=== PATIENT | male | born 1950 | race African-American/Black ===

== ENCOUNTER 2017-11-10 14:09 | Inpatient (IN) | payer MEDICARE ==
[2017-11-10] VITALS (20 sets, daily range): BP systolic 115–179; BP diastolic 67–104
[~2017-11-10] VITALS: Ht 195.6 cm; Wt 117.3 kg
[2017-11-10] MEDS ORDERED: ALTEPLASE IV SCH (14:30)
--- NOTE | 2017-11-10 14:33 | RAD ---
CT head without IV contrast CLINICAL HISTORY: CODE STROKE, RT SD WEAKNESS, SLURRED SPEECH COMPARISON: None. TECHNIQUE: Routine CT of the head without contrast. Soft tissues and bone windows were reviewed. PQRS compliance Statement One or more of the following individualized dose reduction techniques were utilized for this study: 1. Automated exposure control 2. Adjustment of the mA and/or kV according to patient size 3. Use of iterative reconstruction technique FINDINGS: There is no evidence of hemorrhage, mass or extra-axial fluid collection. Singleton-white differentiation is maintained with no evidence of edema. There is no mass effect or shift of the intracranial structures. The ventricles, basilar cisterns and cortical sulci are normal in size and configuration for the patients stated age. The cerebellum and brainstem are unremarkable. The calvarium demonstrates no evidence of fracture or focal lesion. There is normal aeration of the visualized paranasal sinuses and mastoid air cells. The visualized portions of the orbits are normal. IMPRESSION: 1. No evidence for acute intracranial hemorrhage. ::: This critical result of no evidence of acute intracranial hemorrhage was verbally reported by Abisai Maria MD to Dr. Amado on 11/10/2017 2:26 PM, 1 minute after the diagnosis was made. ::: Electronically signed by: Abisai Maria MD (11/10/2017 2:29 PM) [facility]
[2017-11-10 14:34] LABS: HEMATOCRIT 40.3 % (39.0-53.0); HEMOGLOBIN 13.3 g/dL (13.0-17.5); RED BLOOD COUNT 4.89 x10^6/uL (4.30-5.70); RED CELL DISTRIBUTION WIDTH 14.6 % (11.5-14.5); WHITE BLOOD COUNT 5.1 x10^3/uL (4.0-11.0)
--- NOTE | 2017-11-10 14:35 | EKG ---
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
--- NOTE | 2017-11-10 14:36 | PHYS DOC ---
Past Medical History Past Medical History: No Pertinent History Smoking: Cigarettes (The patient is a nonsmoker.) Alcohol Use: None Drug Use: None Adult General Chief Complaint Chief Complaint: NEURO SYMPTOMS/DEFICITS HPI HPI Patient is a healthy 67-year-old male who presents to the emergency department via EMS with acute strokelike symptoms. The patient states he just finished playing golf, and he got into his car. While he was driving, he had the sudden onset of not feeling well, with a mild headache. He states his right hand went completely limp, and he was noted by EMS, whom he called, to have a right facial droop and slurred speech. His symptoms started about 1:20 PM this afternoon. The patient does admit to a mild headache. He denies any vision changes. He does not take any anticoagulants. He states he has no other prior medical history. He denies any recent head injuries or surgeries. Review of Systems Review of Systems Constitutional: Denies fever or chills [] Eyes: Denies change in visual acuity, redness, or eye pain [] HENT: Denies nasal congestion or sore throat [] Respiratory: Denies cough or shortness of breath [] Cardiovascular: The patient denies any shortness of breath, chest pain, palpitations, or orthopnea [] GI: Denies abdominal pain, nausea, vomiting, bloody stools or diarrhea [] : Denies dysuria or hematuria [] Musculoskeletal: Denies back pain or joint pain [] Integument: Denies rash or skin lesions [] Neurologic: As per history of present illness[] Endocrine: Denies polyuria or polydipsia [] All other systems were reviewed and found to be within normal limits, except as documented in this note. Current Medications Current Medications Current Medications Medications (Trade) Dose Ordered Sig/Christina Start Time Stop Time Status Last Admin Dose Admin Alteplase, Recombinant 0 ml @ 0 mls/hr 1X ONCE 11/10/17 14:45 11/10/17 14:46 DC 11/10/17 14:56 0 MLS/HR Labetalol HCl (Normodyne) 10 mg PRN Q10MIN PRN 11/10/17 14:30 Nicardipine HCl 50 mg/Sodium Chloride 270 ml @ 27 mls/hr CONT PRN PRN 11/10/17 14:30 Sodium Chloride 50 ml @ 0 mls/hr 1X ONCE 11/10/17 14:30 11/10/17 14:33 DC 11/10/17 14:58 0 MLS/HR Allergies Allergies Allergies Coded Allergies Type Severity Reaction Last Updated Verified No Known Drug Allergies 11/10/17 No Physical Exam Physical Exam PHYSICAL EXAM: CONSTITUTIONAL: Well developed, well nourished HEAD: normocephalic, atraumatic EENT: PERRL, EOMI. Conjunctivae normal color, sclerae non-icteric; moist mucous membranes. NECK: Supple, non-tender; no meningismus. LUNGS: Lungs CTA, breathing even and unlabored. Normal air movement. HEART: Regular rate and rhythm, no murmur CHEST: No deformity; non-tender ABDOMEN: The abdomen is soft, and non-tender, no masses or bruits. EXTREM: Normal ROM; no deformity, no calf tenderness. Normal pulses palpable in all extremities. There is no pedal edema. SKIN: No rash; no diaphoresis NEURO: Alert; visual aggarwal are intact by confrontation. Strength and sensation are intact and symmetrical in all extremities. There is no reproducible drift or weakness to the right or left arm or leg. There is almost complete paresis of the right lower face, with sparing of the forehead. The patient is able to fully close his eyes. There is moderate dysarthria, the patient's speech is intelligible, although with some difficulty. There are no cerebellar deficits, on mmmldi-zhax-jilxuk and heel padilla testing. NIH stroke scale score is 3. BACK: No CVA TTP. Current Patient Data Vital Signs Vital Signs Date Time Temp Pulse Resp B/P (MAP) Pulse Ox O2 Delivery O2 Flow Rate FiO2 11/10/17 14:17 78 16 100 11/10/17 14:09 98.6 174/99 (124) Room Air 98.6 Lab Values Laboratory Tests Test 11/10/17 14:18 11/10/17 14:20 Glucose (Fingerstick) 116 mg/dL (70-99) H White Blood Count 5.1 x10^3/uL (4.0-11.0) Red Blood Count 4.89 x10^6/uL (4.30-5.70) Hemoglobin 13.3 g/dL (13.0-17.5) Hematocrit 40.3 % (39.0-53.0) Mean Corpuscular Volume 82 fL (79-100) Mean Corpuscular Hemoglobin 27 pg (25-35) Mean Corpuscular Hemoglobin Concent 33 g/dL (31-37) Red Cell Distribution Width 14.6 % (11.5-14.5) H Platelet Count 208 x10^3/uL (140-400) Prothrombin Time 13.5 SEC (11.7-14.0) Prothrombin Time INR 1.1 (0.8-1.1) PTT 28 SEC (24-38) Sodium Level 138 mmol/L (136-145) Potassium Level 3.7 mmol/L (3.5-5.1) Chloride Level 105 mmol/L (98-107) Carbon Dioxide Level 29 mmol/L (21-32) Anion Gap 4 (6-14) L Blood Urea Nitrogen 21 mg/dL (8-26) Creatinine 1.2 mg/dL (0.7-1.3) Estimated GFR (Cockcroft-Gault) 60.8 BUN/Creatinine Ratio 18 (6-20) Glucose Level 130 mg/dL (70-99) H Calcium Level 8.9 mg/dL (8.5-10.1) Total Bilirubin 0.4 mg/dL (0.2-1.0) Aspartate Amino Transferase (AST) 16 U/L (15-37) Alanine Aminotransferase (ALT) 26 U/L (16-63) Alkaline Phosphatase 43 U/L (46-116) L Troponin I Quantitative 0.022 ng/mL (0.000-0.055) Total Protein 7.2 g/dL (6.4-8.2) Albumin 3.9 g/dL (3.4-5.0) Albumin/Globulin Ratio 1.2 (1.0-1.7) Laboratory Tests 11/10/17 14:20 Laboratory Tests 11/10/17 14:20 EKG EKG [Normal sinus rhythm at a rate of 77 beats for minute, left axis deviation, normal intervals, there are no acute ischemic ST/T changes.] Radiology/Procedures Radiology/Procedures [PROCEDURE: CT CODE STROKE HEAD WO CT head without IV contrast CLINICAL HISTORY: CODE STROKE, RT SD WEAKNESS, SLURRED SPEECH COMPARISON: None. TECHNIQUE: Routine CT of the head without contrast. Soft tissues and bone windows were reviewed. PQRS compliance Statement One or more of the following individualized dose reduction techniques were utilized for this study: 1. Automated exposure control 2. Adjustment of the mA and/or kV according to patient size 3. Use of iterative reconstruction technique FINDINGS: There is no evidence of hemorrhage, mass or extra-axial fluid collection. Singleton-white differentiation is maintained with no evidence of edema. There is no mass effect or shift of the intracranial structures. The ventricles, basilar cisterns and cortical sulci are normal in size and configuration for the patients stated age. The cerebellum and brainstem are unremarkable. The calvarium demonstrates no evidence of fracture or focal lesion. There is normal aeration of the visualized paranasal sinuses and mastoid air cells. The visualized portions of the orbits are normal. IMPRESSION: 1. No evidence for acute intracranial hemorrhage.] PROCEDURE: PORTABLE CHEST 1V Exam: AP portable chest History: Strokelike symptoms. Slurred speech. Code stroke. Comparison: None. Findings: The heart and mediastinal structures are within normal limits for size. Lungs are without infiltrate. No pleural effusion or pneumothorax is identified. Aortic atherosclerosis is seen. Impression: 1. No acute cardiopulmonary process. Course & Med Decision Making Course & Med Decision Making Pertinent Labs and Imaging studies reviewed. (See chart for details) [2:35 PM: Preliminary CT head report is negative. The patient is a candidate for TPA, and will be given such. I did discuss the risks of bleeding with the patient and he is agreeable to TPA. I discussed the case with Dr. Ortiz, neurologist, as well.] 2:55 PM:The patient's condition remains stable. I spoke with the hospitalist, who accepted the patient to the hospital for further evaluation and treatment. CRITICAL CARE TIME: 40 Minutes, excluding any procedures and care of other patients. Dragon Disclaimer Dragon Disclaimer This electronic medical record was generated, in whole or in part, using a voice recognition dictation system. Departure Departure Impression: Primary Impression: Acute ischemic stroke Disposition: ADMITTED INPATIENT Admitting Physician: Carson Leal Condition: GUARDED BHAVIK DODD MD Nov 10, 2017 14:36
--- NOTE | 2017-11-10 14:41 | RAD ---
Exam: AP portable chest History: Strokelike symptoms. Slurred speech. Code stroke. Comparison: None. Findings: The heart and mediastinal structures are within normal limits for size. Lungs are without infiltrate. No pleural effusion or pneumothorax is identified. Aortic atherosclerosis is seen. Impression: 1. No acute cardiopulmonary process. Electronically signed by: Ezekiel Oliveira MD (11/10/2017 2:38 PM) [place] [id number]
[2017-11-10 14:44] LABS: PROTHROMBIN TIME PATIENT 13.5 SEC (11.7-14.0)
[2017-11-10] MEDS ORDERED: ALTEPLASE 9 MG IV ONE (14:45)
[2017-11-10] MEDS ORDERED: ALTEPLASE IV ONE (14:45)
[2017-11-10] MEDS ORDERED: ALTEPLASE 81 MG IV SCH (14:45)
[2017-11-10 14:51] LABS: CALCIUM 8.9 mg/dL (8.5-10.1); CREATININE 1.2 mg/dL (0.7-1.3); GFR 60.8; POTASSIUM 3.7 mmol/L (3.5-5.1)
[2017-11-10 14:54] LABS: ALBUMIN 3.9 g/dL (3.4-5.0); ALBUMIN/GLOBULIN RATIO 1.2 (1.0-1.7); TOTAL BILIRUBIN 0.4 mg/dL (0.2-1.0); TOTAL PROTEIN 7.2 g/dL (6.4-8.2)
[2017-11-10] MEDS: IV NORMAL SALINE 50ML 50 ML IV ONE ×2 (14:58→15:45)
[2017-11-10] MEDS: LABETALOL 20 MG/4 ML DISP.SYRIN. IVP PRN (15:11)
[2017-11-10] MEDS ORDERED: LISI-130 PO (16:55)
[2017-11-10] MEDS ORDERED: FENO160T PO (16:55)
--- NOTE | 2017-11-10 17:30 | PDOC1 ---
History and Physical Date of Admission Date of Admission DATE: 11/10/17 TIME: 17:29 Identification/Chief Complaint Chief Complaint presentED to the emergency department via EMS with acute strokelike symptoms. states he just finished playing golf, and he got into his car. he had the sudden onset of not feeling well, with a mild headach, states his right hand went completely limp, noted by EMS, to have a right facial droop and slurred speech. 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[employer]) Current Problem List Problem List Problems Medical Problems: (1) Acute ischemic stroke Status: Acute Current Medications Current Medications Current Medications Alteplase, Recombinant 0 ml @ 0 mls/hr 1X ONCE IV ; Start 11/10/17 at 14:45; Stop 11/10/17 at 14:46; Status Cancel Alteplase, Recombinant 0 ml @ 0 mls/hr Q1H IV ; Start 11/10/17 at 14:30; Stop at 14:31; Status Cancel Sodium Chloride 50 ml @ 0 mls/hr 1X ONCE IV Last administered on 11/10/17at 15: 45; Start 11/10/17 at 14:30; Stop 11/10/17 at 14:33; Status DC Labetalol HCl (Normodyne) 10 mg PRN Q10MIN PRN IVP HYPERTENSION, SEE COMMENTS Last administered on 11/10/17at 15:11; Start 11/10/17 at 14:30 Nicardipine HCl 50 mg/Sodium Chloride 270 ml @ 27 mls/hr CONT PRN PRN IV HYPERTENSION, SEE COMMENTS; Start 11/10/17 at 14:30 Alteplase, Recombinant 0 ml @ 0 mls/hr Q1H IV Last administered on 11/10/17at 14 :57; Start 11/10/17 at 14:45; Stop 11/10/17 at 14:46; Status DC Alteplase, Recombinant 0 ml @ 0 mls/hr 1X ONCE IV Last administered on at 14:56; Start 11/10/17 at 14:45; Stop 11/10/17 at 14:46; Status DC Active Scripts Active Reported Fenofibrate 160 Mg Tablet 1 Tab PO DAILY Lisinopril 40 Mg Tablet 1 Tab PO DAILY Allergies Allergies: Coded Allergies: No Known Drug Allergies (Unverified , 11/10/17) ROS Review of System Review of Systems Review of Systems Constitutional: Denies fever or chills [] Eyes: Denies change in visual acuity, redness, or eye pain [] HENT: Denies nasal congestion or sore throat [] Respiratory: Denies cough or shortness of breath [] Cardiovascular: The patient denies any shortness of breath, chest pain, palpitations, or orthopnea [] GI: Denies abdominal pain, nausea, vomiting, bloody stools or diarrhea [] : Denies dysuria or hematuria [] Musculoskeletal: Denies back pain or joint pain [] Integument: Denies rash or skin lesions [] Neurologic: As per history of present illness[] Endocrine: Denies polyuria or polydipsia [] 14 PT systems were reviewed and found to be within normal limits, except as documented General: No: Chills, Night Sweats, Fatigue, Malaise, Appetite, Other HEENT: YES: Heacaches Cardiovascular: No Chest Pain, No Palpitations, No Orthopnea, No Paroxysmal Noc. Dyspnea, No Edema, No Lt Headedness, No Other Musculoskeletal: Yes Gait Disturbance, Yes Muscular Weakness Neurological: Yes Numbness/Tingling (RIGHT ARM) Skin: No Dry Skin, No Eczema, No Hair Changes, No Lumps, No Mole Changes, No Mottling, No Nail Changes, No Pruritus, No Rash, No Skin Lesion Changes, No Other, No Acne Physical Exam Physical Exam Physical Exam Physical Exam PHYSICAL EXAM: CONSTITUTIONAL: Well developed, well nourished HEAD: normocephalic, atraumatic EENT: PERRL, EOMI. Conjunctivae normal color, sclerae non-icteric; moist mucous membranes. NECK: Supple, non-tender; no meningismus. LUNGS: Lungs CTA, breathing even and unlabored. Normal air movement. HEART: Regular rate and rhythm, no murmur CHEST: No deformity; non-tender ABDOMEN: The abdomen is soft, and non-tender, no masses or bruits. EXTREM: Normal ROM; no deformity, no calf tenderness. Normal pulses palpable in all extremities. There is no pedal edema. SKIN: No rash; no diaphoresis NEURO: Alert; visual aggarwal are intact by confrontation. Strength and sensation are intact and symmetrical in all extremities. There is no reproducible drift or weakness to the right or left arm or leg. There is almost complete paresis of the right lower face, with sparing of the forehead. The patient is able to fully close his eyes. There is moderate dysarthria BEGINNING TO IMPROVE POST TPA , the patient's speech is intelligible, although with some difficulty. There are no cerebellar deficits, on yistcy-ektr-wihxtn and heel padilla testing. NIH stroke scale score is 3. BACK: No CVA TTP. General: Oriented X3, Cooperative HEENT: PERRLA, EOMI Lungs: Clear to auscultation Rectal Exam: not examined Psych/Mental Status: Mental status NL Vitals Vitals Vital Signs Date Time Temp Pulse Resp B/P (MAP) Pulse Ox O2 Delivery O2 Flow Rate FiO2 11/10/17 15:45 66 16 99 11/10/17 15:11 167/106 11/10/17 14:09 98.6 Room Air 98.6 Labs Labs Laboratory Tests Test 11/10/17 14:18 11/10/17 14:20 Glucose (Fingerstick) 116 mg/dL (70-99) White Blood Count 5.1 x10^3/uL (4.0-11.0) Red Blood Count 4.89 x10^6/uL (4.30-5.70) Hemoglobin 13.3 g/dL (13.0-17.5) Hematocrit 40.3 % (39.0-53.0) Mean Corpuscular Volume 82 fL (79-100) Mean Corpuscular Hemoglobin 27 pg (25-35) Mean Corpuscular Hemoglobin Concent 33 g/dL (31-37) Red Cell Distribution Width 14.6 % (11.5-14.5) Platelet Count 208 x10^3/uL (140-400) Prothrombin Time 13.5 SEC (11.7-14.0) Prothromb Time International Ratio 1.1 (0.8-1.1) Activated Partial Thromboplast Time 28 SEC (24-38) Sodium Level 138 mmol/L (136-145) Potassium Level 3.7 mmol/L (3.5-5.1) Chloride Level 105 mmol/L (98-107) Carbon Dioxide Level 29 mmol/L (21-32) Anion Gap 4 (6-14) Blood Urea Nitrogen 21 mg/dL (8-26) Creatinine 1.2 mg/dL (0.7-1.3) Estimated GFR (Cockcroft-Gault) 60.8 BUN/Creatinine Ratio 18 (6-20) Glucose Level 130 mg/dL (70-99) Calcium Level 8.9 mg/dL (8.5-10.1) Total Bilirubin 0.4 mg/dL (0.2-1.0) Aspartate Amino Transf (AST/SGOT) 16 U/L (15-37) Alanine Aminotransferase (ALT/SGPT) 26 U/L (16-63) Alkaline Phosphatase 43 U/L (46-116) Troponin I Quantitative 0.022 ng/mL (0.000-0.055) Total Protein 7.2 g/dL (6.4-8.2) Albumin 3.9 g/dL (3.4-5.0) Albumin/Globulin Ratio 1.2 (1.0-1.7) Laboratory Tests Test 11/10/17 14:18 11/10/17 14:20 Glucose (Fingerstick) 116 mg/dL (70-99) White Blood Count 5.1 x10^3/uL (4.0-11.0) Red Blood Count 4.89 x10^6/uL (4.30-5.70) Hemoglobin 13.3 g/dL (13.0-17.5) Hematocrit 40.3 % (39.0-53.0) Mean Corpuscular Volume 82 fL (79-100) Mean Corpuscular Hemoglobin 27 pg (25-35) Mean Corpuscular Hemoglobin Concent 33 g/dL (31-37) Red Cell Distribution Width 14.6 % (11.5-14.5) Platelet Count 208 x10^3/uL (140-400) Prothrombin Time 13.5 SEC (11.7-14.0) Prothromb Time International Ratio 1.1 (0.8-1.1) Activated Partial Thromboplast Time 28 SEC (24-38) Sodium Level 138 mmol/L (136-145) Potassium Level 3.7 mmol/L (3.5-5.1) Chloride Level 105 mmol/L (98-107) Carbon Dioxide Level 29 mmol/L (21-32) Anion Gap 4 (6-14) Blood Urea Nitrogen 21 mg/dL (8-26) Creatinine 1.2 mg/dL (0.7-1.3) Estimated GFR (Cockcroft-Gault) 60.8 BUN/Creatinine Ratio 18 (6-20) Glucose Level 130 mg/dL (70-99) Calcium Level 8.9 mg/dL (8.5-10.1) Total Bilirubin 0.4 mg/dL (0.2-1.0) Aspartate Amino Transf (AST/SGOT) 16 U/L (15-37) Alanine Aminotransferase (ALT/SGPT) 26 U/L (16-63) Alkaline Phosphatase 43 U/L (46-116) Troponin I Quantitative 0.022 ng/mL (0.000-0.055) Total Protein 7.2 g/dL (6.4-8.2) Albumin 3.9 g/dL (3.4-5.0) Albumin/Globulin Ratio 1.2 (1.0-1.7) VTE Prophylaxis Ordered VTE Prophylaxis Devices: Contraindicated VTE Pharmacological Prophylaxi: Contraindicated Assessment/Plan Assessment/Plan Impression: Acute ischemic stroke HX HTN PLAN TPA PROTOCOL ADMITTED ICU BED NEUROLOGY CONSULT NEUROCHECKS Q 4 HRS 33 MIN CC TIME NIKKIE FLORES MD Nov 10, 2017 17:30
[2017-11-10] MEDS: IV NORMAL SALINE 1000ML BAG 1,000 ML IV SCH (18:29)
--- NOTE | 2017-11-10 19:48 | PDOC2 ---
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 Right side facial palsy. Right UE weakness, Aphasia, expressive. HTN DM. Over weight. RECOMMENDATIONS/PLAN: TPA administrated after all criteria met. Stroke protocol. Swallow teats. ASA 325 mg 24-hours after TPA. Carotid A US + Doppler. Echo + bubble study. Brain MRI w/o contrast on 11/11. Fasting lipids, TSH, Vit B12, UDS. Treat medical diseases. BP control. OT/PT. HISTORY OF THE PRESENT ILLNESS: This is a 67-year-old AA male patient with Hx of HTN who was brought to the [facility] ER via EMS with acute strokelike symptoms. The patient stated he just finished playing golf and got into his car. While was driving, he suddenly feeling sick with mild headache. He felt his right hand went completely limp. Per EMS, he had right side facial droop and slurred speech. His symptoms started about 1:20 PM on 11/10. He denied vision changes. He denied any recent head injuries or surgeries. PAST MEDICAL HISTORY: HTN. Over weight. PAST SURGERY HISTORY: No major surgery recently. ALLERGY: NKDA MEDICATIONS: Refer to [facility] FAMILY HISTORY: HTN, HLD. SOCIAL HISTORY: Lives at home. Denies current smoking and illicit drug use. He drinks 1 beer a month. He was a former smoker and drinker but quit in . REVIEW OF SYSTEMS: Constitutional: No malnutrition, weight loss, cachexia. Head: No traumatic brain or head injury. Skin: No edema, or rash. Ear: No infection. Eyes: No vision loss or color blindness. Nose: No bleeding or purulent discharges. Hearing: No hearing decrease. Neck: No injury. Cardiac: HTN. Pulmonary: No pneumonia, COPD. GI: No GI ulcer, GI bleeding. Urinary/genital: No dysuria, incontinence, urinary retention. Endocrinologic: Diabetes Mellitus? Skeletomuscular: No muscular atrophy, deformity. Neurological: see HP. Psychiatric: Denies drug use/abuse. Otherwise, not -sjrbv review of systems. PHYSICAL EXAMINATION: General appearance is in acute distress. HEENT: Normocephalic and nontraumatic. Eyes, nose, ears, and throat are unremarkable. Neck is supple. No lymphadenopathy. No crepitus. Cardiovascular: S1, S2, regular rate and rhythm. Pulmonary: Clear to auscultation bilaterally. Abdomen: Bowel sounds are positive. Abdomen is soft, nontender, and nondistended. Extremities: No rash, lesions, or edema. No restriction of range of motion NEUROLOGICAL EXAMINATION: Awake. Oriented to time, place and person. PERRL. EOMI. CN: right side VII palsy. Muscle tone: within normal. Muscle strength: 5- right UE. the rest is 5. DTR: 2 Plantar reflex: Flexor response bilaterally Gait: not examined in bed. Sensory exam: no abnormal findings. No cerebellar signs elicited. F-T-N test fine. Current Medications Current Medications Current Medications Alteplase, Recombinant 0 ml @ 0 mls/hr 1X ONCE IV ; Start 11/10/17 at 14:45; Stop 11/10/17 at 14:46; Status Cancel Alteplase, Recombinant 0 ml @ 0 mls/hr Q1H IV ; Start 11/10/17 at 14:30; Stop at 14:31; Status Cancel Sodium Chloride 50 ml @ 0 mls/hr 1X ONCE IV Last administered on 11/10/17at 15: 45; Start 11/10/17 at 14:30; Stop 11/10/17 at 14:33; Status DC Labetalol HCl (Normodyne) 10 mg PRN Q10MIN PRN IVP HYPERTENSION, SEE COMMENTS Last administered on 11/10/17at 15:11; Start 11/10/17 at 14:30 Nicardipine HCl 50 mg/Sodium Chloride 270 ml @ 27 mls/hr CONT PRN PRN IV HYPERTENSION, SEE COMMENTS; Start 11/10/17 at 14:30 Alteplase, Recombinant 0 ml @ 0 mls/hr Q1H IV Last administered on 11/10/17at 14 :57; Start 11/10/17 at 14:45; Stop 11/10/17 at 14:46; Status DC Alteplase, Recombinant 0 ml @ 0 mls/hr 1X ONCE IV Last administered on at 14:56; Start 11/10/17 at 14:45; Stop 11/10/17 at 14:46; Status DC Fenofibrate (Lofibra) 134 mg DAILY PO ; Start 11/11/17 at 09:00 Sodium Chloride 1,000 ml @ 75 mls/hr [id number] IV Last administered on at 18:29; Start 11/10/17 at 19:00 Active Scripts Active Reported Fenofibrate 160 Mg Tablet 1 Tab PO DAILY Lisinopril 40 Mg Tablet 1 Tab PO DAILY Allergies Allergies: Allergies Coded Allergies Type Severity Reaction Last Updated Verified No Known Drug Allergies 11/10/17 No ROS Review of System The patient denies any associated fevers, chills, headache, ear pain, rhinorrhea , sore throat, stiff neck, productive cough, chest pain, shortness of breath, back or flank pain, abdominal pain, nausea, vomiting, diarrhea, constipation, dysuria, rash, numbness, weakness, tingling, incontinence, difficulty ambulating, or diaphoresis. Physical Exam Physical Exam General: Well developed, well nourished, no acute distress, well appearing HEENT: Pupils equally round and reactive to light, EOMI, no discharge, normal conjunctiva Neck: Supple, no nuchal rigidity, no JVD, trachea midline, no tenderness Cardiac: RRR, no murmurs, no gallops, no rubs Chest/Lungs: CTAB, no wheeze, no rhonchi, no crackles Abdomen: soft, non-distended, no guarding, no peritoneal signs, non-tender Back: No tenderness Extremities: no edema, pulses intact, non-tender,capillary refill <3 sec bilateral upper and lower extremities, Neuro: Alert and oriented x 4, no focal deficits, normal speech Vitals Vitals: Vital Signs Date Time Temp Pulse Resp B/P (MAP) Pulse Ox O2 Delivery O2 Flow Rate FiO2 11/10/17 18:30 73 24 179/100 (126) 98 Room Air 11/10/17 16:15 97.3 97.3 Labs Labs Laboratory Tests Test 11/10/17 14:00 11/10/17 14:18 11/10/17 14:20 Thyroid Stimulating Hormone (TSH) 1.002 uIU/mL (0.358-3.74) Glucose (Fingerstick) 116 mg/dL (70-99) White Blood Count 5.1 x10^3/uL (4.0-11.0) Red Blood Count 4.89 x10^6/uL (4.30-5.70) Hemoglobin 13.3 g/dL (13.0-17.5) Hematocrit 40.3 % (39.0-53.0) Mean Corpuscular Volume 82 fL (79-100) Mean Corpuscular Hemoglobin 27 pg (25-35) Mean Corpuscular Hemoglobin Concent 33 g/dL (31-37) Red Cell Distribution Width 14.6 % (11.5-14.5) Platelet Count 208 x10^3/uL (140-400) Prothrombin Time 13.5 SEC (11.7-14.0) Prothromb Time International Ratio 1.1 (0.8-1.1) Activated Partial Thromboplast Time 28 SEC (24-38) Sodium Level 138 mmol/L (136-145) Potassium Level 3.7 mmol/L (3.5-5.1) Chloride Level 105 mmol/L (98-107) Carbon Dioxide Level 29 mmol/L (21-32) Anion Gap 4 (6-14) Blood Urea Nitrogen 21 mg/dL (8-26) Creatinine 1.2 mg/dL (0.7-1.3) Estimated GFR (Cockcroft-Gault) 60.8 BUN/Creatinine Ratio 18 (6-20) Glucose Level 130 mg/dL (70-99) Calcium Level 8.9 mg/dL (8.5-10.1) Total Bilirubin 0.4 mg/dL (0.2-1.0) Aspartate Amino Transf (AST/SGOT) 16 U/L (15-37) Alanine Aminotransferase (ALT/SGPT) 26 U/L (16-63) Alkaline Phosphatase 43 U/L (46-116) Troponin I Quantitative 0.022 ng/mL (0.000-0.055) Total Protein 7.2 g/dL (6.4-8.2) Albumin 3.9 g/dL (3.4-5.0) Albumin/Globulin Ratio 1.2 (1.0-1.7) Laboratory Tests Test 11/10/17 14:00 11/10/17 14:18 11/10/17 14:20 Thyroid Stimulating Hormone (TSH) 1.002 uIU/mL (0.358-3.74) Glucose (Fingerstick) 116 mg/dL (70-99) White Blood Count 5.1 x10^3/uL (4.0-11.0) Red Blood Count 4.89 x10^6/uL (4.30-5.70) Hemoglobin 13.3 g/dL (13.0-17.5) Hematocrit 40.3 % (39.0-53.0) Mean Corpuscular Volume 82 fL (79-100) Mean Corpuscular Hemoglobin 27 pg (25-35) Mean Corpuscular Hemoglobin Concent 33 g/dL (31-37) Red Cell Distribution Width 14.6 % (11.5-14.5) Platelet Count 208 x10^3/uL (140-400) Prothrombin Time 13.5 SEC (11.7-14.0) Prothromb Time International Ratio 1.1 (0.8-1.1) Activated Partial Thromboplast Time 28 SEC (24-38) Sodium Level 138 mmol/L (136-145) Potassium Level 3.7 mmol/L (3.5-5.1) Chloride Level 105 mmol/L (98-107) Carbon Dioxide Level 29 mmol/L (21-32) Anion Gap 4 (6-14) Blood Urea Nitrogen 21 mg/dL (8-26) Creatinine 1.2 mg/dL (0.7-1.3) Estimated GFR (Cockcroft-Gault) 60.8 BUN/Creatinine Ratio 18 (6-20) Glucose Level 130 mg/dL (70-99) Calcium Level 8.9 mg/dL (8.5-10.1) Total Bilirubin 0.4 mg/dL (0.2-1.0) Aspartate Amino Transf (AST/SGOT) 16 U/L (15-37) Alanine Aminotransferase (ALT/SGPT) 26 U/L (16-63) Alkaline Phosphatase 43 U/L (46-116) Troponin I Quantitative 0.022 ng/mL (0.000-0.055) Total Protein 7.2 g/dL (6.4-8.2) Albumin 3.9 g/dL (3.4-5.0) Albumin/Globulin Ratio 1.2 (1.0-1.7) LEN STRONG MD Nov 10, 2017 19:48
[2017-11-11] VITALS (19 sets, daily range): BP systolic 121–168; BP diastolic 74–103
[2017-11-11] MEDS: FENOFIBRATE,MICRONIZED 134 MG CAPSULE PO SCH (09:25)
[2017-11-11 10:17] LABS: BARBITURATES NEG (NEG); BENZODIAZEPINES NEG (NEG); CANNABINOIDS NEG (NEG); COCAINE NEG (NEG); METHADONE NEG (NEG); OPIATES NEG (NEG); PHENCYCLIDINE NEG (NEG)
[2017-11-11 10:21] LABS: AMPHETAMINE/METHAMPHETAMINE NEG (NEG)
[2017-11-11] MEDS: LABETALOL 20 MG/4 ML DISP.SYRIN. IVP PRN (11:38)
--- NOTE | 2017-11-11 12:03 | CARD ---
MR#: [id number] Date of Study: 11/11/2017 Ordering Physician: LEN STRONG, Referring Physician: NIKKIE FLORES, Tech: JEFFREY Johnson APPROVED REPORT EXAM: Two-dimensional and M-mode echocardiogram with Doppler and color Doppler. Other Information Quality : AverageHR: 70bpm INDICATION CVA/TIA Echo Enhancing Agent Indication: Rule Out Septal Defect Agent/Amount Used: Agitated Saline 7mL 2D DIMENSIONS Left Atrium(2D)3.3 (1.6-4.0cm)IVSd1.8 (0.7-1.1cm) Aortic Root(2D)3.4 (2.0-3.7cm)LVDd4.9 (3.9-5.9cm) LVOT Diameter2.5 (1.8-2.4cm)PWd1.4 (0.7-1.1cm) LVDs3.9 (2.5-4.0cm)FS (%) 28.0 % SV44.6 mlLVEF(%)45.0 (>50%) Aortic Valve AoV Peak Aung.119.1cm/sAoV VTI25.3cm AO Peak GR.5.7mmHgLVOT VTI 16.66cm AO Mean GR.3mmHg Mitral Valve MV E Nbqinshf44.8cm/sMV DECEL [id number] MV A Fvgobhrt63.6cm/sE/A Ratio0.6 TDI Lateral E' P. V9.72cm/sMedial E' P. V7.40cm/s E/Lateral E'4.4E/Medial E'5.8 LEFT VENTRICLE The left ventricle is normal size. There is mild to moderate concentric left ventricular hypertrophy. Proximal septal thickening is noted. Left ventricle systolic function is mildly decreased. The Eject ion Fraction is 45%. There is normal LV segmental wall motion. Transmitral Doppler flow pattern is Gr pual I-abnormal relaxation pattern. There is no ventricular septal defect visualized. RIGHT VENTRICLE The right ventricle is normal size. The right ventricular systolic function is normal. ATRIA The left atrium size is normal. The right atrium size is normal. The interatrial septum is intact wit h no evidence for an atrial septal defect or patent foramen ovale as noted on 2-D or Doppler imaging. Injection of bubbles documented no interatrial shunt. AORTIC VALVE The aortic valve is thickened and calcified but opens well. Aortic sclerosis without stenosis Doppler and Color Flow revealed trace aortic regurgitation. There is no significant aortic valvular stenosis . There is no aortic valvular vegetation. MITRAL VALVE The mitral valve is thickened but opens well. There is no evidence of mitral valve prolapse. There is no mitral valve stenosis. Doppler and Color Flow revealed no mitral valve regurgitation noted. TRICUSPID VALVE The tricuspid valve is not well visualized. Doppler and Color Flow revealed no tricuspid valve regurg itation noted. There is no tricuspid valve stenosis. PULMONIC VALVE The pulmonic valve is not well visualized. Doppler and Color Flow revealed mild pulmonic valvular reg urgitation. There is no pulmonic valvular stenosis. GREAT VESSELS The aortic root is normal in size. The IVC was not visualized. PERICARDIAL EFFUSION There is no pleural effusion. There is no evidence of significant pericardial effusion. Critical Notification Critical Value: No <Conclusion> There is mild to moderate concentric left ventricular hypertrophy. Proximal septal thickening is noted. Left ventricle systolic function is mildly decreased. The Ejection Fraction is 45%. Transmitral Doppler flow pattern is Grade I-abnormal relaxation pattern. The left atrium size is normal. The right atrium size is normal. The aortic valve is thickened and calcified but opens well. Aortic sclerosis without stenosis Doppler and Color Flow revealed trace aortic regurgitation. Doppler and Color Flow revealed no mitral valve regurgitation noted. The mitral valve is thickened but opens well. The tricuspid valve is not well visualized. Doppler and Color Flow revealed mild pulmonic valvular regurgitation. There is no evidence of significant pericardial effusion. No thrombus or septal defect was seen Signed by : Brijesh Donovan MD Electronically Approved : 11/11/2017 12:02:00
--- NOTE | 2017-11-11 15:30 | PDOC ---
PROGRESS NOTES Chief Complaint Chief Complaint Medical Problems: -Acute CVA, TPA administered yesterday -Elevated Troponin History of Present Illness History of Present Illness -Pt. was visited & examined in ICU -Pt. displayed motor hypokinesis of various muscular groups -Pt.demonstrated normal levels of cognition -Pts. family members were in the room with him -DW Pt. his likely, but timely prognostic improvement -KAUSHIK RN patients post-ischemic stroke status & out plan of action Vitals Vitals Vital Signs Date Time Temp Pulse Resp B/P (MAP) Pulse Ox O2 Delivery O2 Flow Rate FiO2 11/11/17 15:00 66 18 135/89 (104) 100 Room Air 11/11/17 07:00 99.2 99.2 Physical Exam General: Alert, Oriented X3, Cooperative, No acute distress Heart: Regular rate, Normal S1, Normal S2 Lungs: Clear, Other Abdomen: Normal bowel sounds, Soft, No tenderness Extremities: No clubbing, No cyanosis, No edema, No tenderness/swelling Skin: No rashes, No breakdown, No significant lesion Labs LABS Laboratory Tests Test 11/11/17 09:20 Urine Opiates Screen Neg (NEG) Urine Methadone Screen Neg (NEG) Urine Barbiturates Neg (NEG) Urine Phencyclidine Screen Neg (NEG) Urine Amphetamine/Methamphetamine Neg (NEG) Urine Benzodiazepines Screen Neg (NEG) Urine Cocaine Screen Neg (NEG) Urine Cannabinoids Screen Neg (NEG) Urine Ethyl Alcohol Neg (NEG) Review of Systems Review of Systems Pt. demonstrated slight aphasia Pt. lacked CHISHOLM Assessment and Plan Assessmemt and Plan Medical Problems: -Acute CVA, TPA administered yesterday -Elevated Troponin Plan: -Speach Therapy -Cardiac Monitoring -Labs -PT/OT -Home Meds -IV Fluids Comment Review of Relevant I have reviewed the following items justo (where applicable) has been applied. Labs Laboratory Tests Test 11/10/17 14:00 11/10/17 14:18 11/10/17 14:20 11/11/17 09:20 Thyroid Stimulating Hormone (TSH) 1.002 uIU/mL (0.358-3.74) Glucose (Fingerstick) 116 mg/dL (70-99) White Blood Count 5.1 x10^3/uL (4.0-11.0) Red Blood Count 4.89 x10^6/uL (4.30-5.70) Hemoglobin 13.3 g/dL (13.0-17.5) Hematocrit 40.3 % (39.0-53.0) Mean Corpuscular Volume 82 fL (79-100) Mean Corpuscular Hemoglobin 27 pg (25-35) Mean Corpuscular Hemoglobin Concent 33 g/dL (31-37) Red Cell Distribution Width 14.6 % (11.5-14.5) Platelet Count 208 x10^3/uL (140-400) Prothrombin Time 13.5 SEC (11.7-14.0) Prothromb Time International Ratio 1.1 (0.8-1.1) Activated Partial Thromboplast Time 28 SEC (24-38) Sodium Level 138 mmol/L (136-145) Potassium Level 3.7 mmol/L (3.5-5.1) Chloride Level 105 mmol/L (98-107) Carbon Dioxide Level 29 mmol/L (21-32) Anion Gap 4 (6-14) Blood Urea Nitrogen 21 mg/dL (8-26) Creatinine 1.2 mg/dL (0.7-1.3) Estimated GFR (Cockcroft-Gault) 60.8 BUN/Creatinine Ratio 18 (6-20) Glucose Level 130 mg/dL (70-99) Calcium Level 8.9 mg/dL (8.5-10.1) Total Bilirubin 0.4 mg/dL (0.2-1.0) Aspartate Amino Transf (AST/SGOT) 16 U/L (15-37) Alanine Aminotransferase (ALT/SGPT) 26 U/L (16-63) Alkaline Phosphatase 43 U/L (46-116) Troponin I Quantitative 0.022 ng/mL (0.000-0.055) Total Protein 7.2 g/dL (6.4-8.2) Albumin 3.9 g/dL (3.4-5.0) Albumin/Globulin Ratio 1.2 (1.0-1.7) Urine Opiates Screen Neg (NEG) Urine Methadone Screen Neg (NEG) Urine Barbiturates Neg (NEG) Urine Phencyclidine Screen Neg (NEG) Urine Amphetamine/Methamphetamine Neg (NEG) Urine Benzodiazepines Screen Neg (NEG) Urine Cocaine Screen Neg (NEG) Urine Cannabinoids Screen Neg (NEG) Urine Ethyl Alcohol Neg (NEG) Laboratory Tests Test 11/11/17 09:20 Urine Opiates Screen Neg (NEG) Urine Methadone Screen Neg (NEG) Urine Barbiturates Neg (NEG) Urine Phencyclidine Screen Neg (NEG) Urine Amphetamine/Methamphetamine Neg (NEG) Urine Benzodiazepines Screen Neg (NEG) Urine Cocaine Screen Neg (NEG) Urine Cannabinoids Screen Neg (NEG) Urine Ethyl Alcohol Neg (NEG) Medications Current Medications Alteplase, Recombinant 0 ml @ 0 mls/hr 1X ONCE IV ; Start 11/10/17 at 14:45; Stop 11/10/17 at 14:46; Status Cancel Alteplase, Recombinant 0 ml @ 0 mls/hr Q1H IV ; Start 11/10/17 at 14:30; Stop at 14:31; Status Cancel Sodium Chloride 50 ml @ 0 mls/hr 1X ONCE IV Last administered on 11/10/17at 15: 45; Start 11/10/17 at 14:30; Stop 11/10/17 at 14:33; Status DC Labetalol HCl (Normodyne) 10 mg PRN Q10MIN PRN IVP HYPERTENSION, SEE COMMENTS Last administered on 11/11/17at 11:38; Start 11/10/17 at 14:30 Nicardipine HCl 50 mg/Sodium Chloride 270 ml @ 27 mls/hr CONT PRN PRN IV HYPERTENSION, SEE COMMENTS; Start 11/10/17 at 14:30 Alteplase, Recombinant 0 ml @ 0 mls/hr Q1H IV Last administered on 11/10/17at 14 :57; Start 11/10/17 at 14:45; Stop 11/10/17 at 14:46; Status DC Alteplase, Recombinant 0 ml @ 0 mls/hr 1X ONCE IV Last administered on at 14:56; Start 11/10/17 at 14:45; Stop 11/10/17 at 14:46; Status DC Fenofibrate (Lofibra) 134 mg DAILY PO Last administered on 11/11/17at 09:25; Start 11/11/17 at 09:00 Sodium Chloride 1,000 ml @ 75 mls/hr [id number] IV Last administered on at 18:29; Start 11/10/17 at 19:00 Active Scripts Active Reported Fenofibrate 160 Mg Tablet 1 Tab PO DAILY Lisinopril 40 Mg Tablet 1 Tab PO DAILY Vitals/I & O Vital Sign - Last 24 Hours 11/10/17 11/10/17 11/10/17 11/10/17 15:30 15:45 16:15 16:15 Temp 97.3 97.3 Pulse 72 66 64 Resp 16 16 18 B/P (MAP) 164/104 (124) Pulse Ox 99 99 100 O2 Delivery Room Air Room Air 11/10/17 11/10/17 11/10/17 11/10/17 16:30 16:45 17:00 17:15 Pulse 66 68 70 66 Resp 23 20 21 23 B/P (MAP) 164/103 (123) 161/102 (121) 164/91 (115) 157/97 (117) Pulse Ox 100 99 100 99 O2 Delivery Room Air Room Air Room Air Room Air 11/10/17 11/10/17 11/10/17 11/10/17 17:30 17:45 18:00 18:15 Pulse 70 72 72 66 Resp 18 20 22 20 B/P (MAP) 156/102 (120) 164/103 (123) 171/88 (115) 154/92 (112) Pulse Ox 99 99 97 99 O2 Delivery Room Air Room Air Room Air Room Air 11/10/17 11/10/17 11/10/17 11/10/17 18:30 19:00 19:30 20:00 Pulse 73 68 68 Resp 24 21 21 B/P (MAP) 179/100 (126) 169/98 (121) 156/99 (118) Pulse Ox 98 99 99 O2 Delivery Room Air Room Air Room Air Room Air 11/10/17 11/10/17 11/10/17 11/10/17 20:00 20:30 21:00 21:30 Temp 97.3 97.3 Pulse 70 72 68 68 Resp 19 19 19 19 B/P (MAP) 175/93 (120) 164/96 (118) 151/97 (115) 139/84 (102) Pulse Ox 99 97 97 97 O2 Delivery Room Air Room Air Room Air Room Air 11/10/17 11/10/17 11/10/17 11/10/17 22:00 22:30 23:00 23:30 Pulse 68 66 68 66 Resp 17 20 18 18 B/P (MAP) 134/81 (98) 131/77 (95) 126/84 (98) 115/67 (83) Pulse Ox 98 97 98 96 O2 Delivery Room Air Room Air Room Air Room Air 11/11/17 11/11/17 11/11/17 11/11/17 00:00 00:00 01:00 02:00 Temp 98.6 98.6 Pulse 66 68 66 Resp 17 18 20 B/P (MAP) 121/74 (90) 147/88 (107) 150/82 (104) Pulse Ox 97 99 96 O2 Delivery Room Air Room Air Room Air Room Air 11/11/17 11/11/17 11/11/17 11/11/17 03:00 04:00 04:00 05:00 Temp 98.6 98.6 Pulse 66 62 68 Resp 18 17 18 B/P (MAP) 150/91 (110) 143/82 (102) 149/87 (107) Pulse Ox 97 97 97 O2 Delivery Room Air Room Air Room Air Room Air 11/11/17 11/11/17 11/11/17 11/11/17 06:00 07:00 08:00 08:00 Temp 99.2 99.2 Pulse 67 65 65 Resp 16 18 18 B/P (MAP) 147/89 (108) 150/98 (115) 163/87 (112) Pulse Ox 98 100 98 O2 Delivery Room Air Room Air Room Air Room Air 11/11/17 11/11/17 11/11/17 11/11/17 09:00 10:00 11:00 11:38 Pulse 62 64 67 67 Resp 18 18 18 B/P (MAP) 155/92 (113) 148/96 (113) 168/103 (124) 180/107 Pulse Ox 99 100 97 O2 Delivery Room Air Room Air Room Air 11/11/17 11/11/17 11/11/17 11/11/17 12:00 12:00 13:00 14:00 Pulse 62 68 66 Resp 18 18 18 B/P (MAP) 129/84 (99) 145/97 (113) 141/88 (105) Pulse Ox 98 96 98 O2 Delivery Room Air Room Air Room Air Room Air 11/11/17 15:00 Pulse 66 Resp 18 B/P (MAP) 135/89 (104) Pulse Ox 100 O2 Delivery Room Air Intake and Output 11/10/17 11/10/17 11/11/17 15:00 23:00 07:00 Intake Total 81 ml 716 ml Output Total 400 ml 1075 ml Balance -319 ml -359 ml AMILCAR SANTANA III DO Nov 11, 2017 15:30
--- NOTE | 2017-11-11 15:41 | RAD ---
Bilateral Duplex Carotid Ultrasound: History: CVA, right weakness, slurred speech. Technique: Grayscale, color Doppler, and spectral Doppler imaging was performed of the arteries of the neck. Findings: Peak systolic velocity in right common carotid artery is 70 cm/sec. Peak systolic velocity in the right internal carotid artery is 79 cm/sec. Maximum end-diastolic velocity in the right internal carotid artery is 31 cm/sec. Right ICA/CCA ratio is 1.13. Peak systolic velocity in the right external carotid artery is 38 cm/sec. Peak systolic velocity in left common carotid artery is 61 cm/sec. Peak systolic velocity in the left internal carotid artery is 75 cm/sec. Maximum end-diastolic velocity in the left internal carotid artery is 31 cm/sec. Left ICA/CCA ratio is 1.23. Peak systolic velocity in the left external carotid artery is 53 cm/sec. Both vertebral arteries demonstrate antegrade flow. Grayscale imaging demonstrates no significant atherosclerotic plaquing. Impression: No hemodynamically significant internal carotid artery stenosis. Note: Stenosis calculations for carotid ultrasound studies are derived from validated velocity criteria which are known to correlate with the NASCET methodology. Electronically signed by: Ezekiel Oliveira MD (11/11/2017 3:37 PM) [place] [id number]
--- NOTE | 2017-11-11 16:13 | PDOC ---
PROGRESS NOTES Assessment Assessment Acute CVA syndrome s/p TPA on 11/10/17. Right side facial palsy. Right UE weakness. Aphasia, expressive. HTN DM. Over weight. RECOMMENDATIONS/PLAN: TPA administrated ON 11/10 after all criteria met. Stroke protocol. Swallow teats. ASA 325 mg 24-hours after TPA. Brain MRI w/o contrast on 11/11. Fasting lipids,ordered a 2nd time. !st was cancelled for unknown reason. Treat medical diseases. BP control. OT/PT. Discussed with his at bedside in ICU. Carotid A US + Doppler: No hemodynamic stenosis. Echo + bubble study: EF: 45% HISTORY OF THE PRESENT ILLNESS: This is a 67-year-old AA male patient with Hx of HTN who was brought to the [facility] ER via EMS with acute strokelike symptoms. The patient stated he just finished playing golf and got into his car. While was driving, he suddenly feeling sick with mild headache. He felt his right hand went completely limp. Per EMS, he had right side facial droop and slurred speech. His symptoms started about 1:20 PM on 11/10. He denied vision changes. He denied any recent head injuries or surgeries. Speech improved. Right UE weakness resolved since 11/10. PAST MEDICAL HISTORY: HTN. Over weight. PAST SURGERY HISTORY: No major surgery recently. ALLERGY: NKDA MEDICATIONS: Refer to [facility] FAMILY HISTORY: HTN, HLD. SOCIAL HISTORY: Lives at home. Denies current smoking and illicit drug use. He drinks 1 beer a month. He was a former smoker and drinker but quit in . REVIEW OF SYSTEMS: Constitutional: No malnutrition, weight loss, cachexia. Head: No traumatic brain or head injury. Skin: No edema, or rash. Ear: No infection. Eyes: No vision loss or color blindness. Nose: No bleeding or purulent discharges. Hearing: No hearing decrease. Neck: No injury. Cardiac: HTN. Pulmonary: No pneumonia, COPD. GI: No GI ulcer, GI bleeding. Urinary/genital: No dysuria, incontinence, urinary retention. Endocrinologic: Diabetes Mellitus? Skeletomuscular: No muscular atrophy, deformity. Neurological: see HP. Psychiatric: Denies drug use/abuse. Otherwise, not [id number] review of systems. PHYSICAL EXAMINATION: General appearance is in acute distress. HEENT: Normocephalic and nontraumatic. Eyes, nose, ears, and throat are unremarkable. Neck is supple. No lymphadenopathy. No crepitus. Cardiovascular: S1, S2, regular rate and rhythm. Pulmonary: Clear to auscultation bilaterally. Abdomen: Bowel sounds are positive. Abdomen is soft, nontender, and nondistended. Extremities: No rash, lesions, or edema. No restriction of range of motion NEUROLOGICAL EXAMINATION: Awake. Oriented to time, place and person. PERRL. EOMI. CN: right side VII palsy. Muscle tone: within normal. Muscle strength: 5 DTR: 2 Plantar reflex: Flexor response bilaterally Gait: not examined in bed. Sensory exam: no abnormal findings. No cerebellar signs elicited. F-T-N test fine. Objective Objective Vital Signs Date Time Temp Pulse Resp B/P (MAP) Pulse Ox O2 Delivery O2 Flow Rate FiO2 11/11/17 15:00 66 18 135/89 (104) 100 Room Air 11/11/17 07:00 99.2 99.2 Intake and Output 11/11/17 07:00 Intake Total 797 ml Output Total 1475 ml Balance -678 ml Intake Oral 0 ml IV Total 797 ml Output Urine Total 1475 ml Vitals Signs Vitals VS - Last 72 Hours, by Label Date Time Temp Pulse Resp B/P (MAP) Pulse Ox O2 Delivery O2 Flow Rate FiO2 11/11/17 15:00 66 18 135/89 (104) 100 Room Air 11/11/17 14:00 66 18 141/88 (105) 98 Room Air 11/11/17 13:00 68 18 145/97 (113) 96 Room Air 11/11/17 12:00 62 18 129/84 (99) 98 Room Air 11/11/17 12:00 Room Air 11/11/17 11:38 67 180/107 11/11/17 11:00 67 18 168/103 (124) 97 Room Air 11/11/17 10:00 64 18 148/96 (113) 100 Room Air 11/11/17 09:00 62 18 155/92 (113) 99 Room Air 11/11/17 08:00 65 18 163/87 (112) 98 Room Air 11/11/17 08:00 Room Air 11/11/17 07:00 99.2 65 18 150/98 (115) 100 Room Air 99.2 11/11/17 06:00 67 16 147/89 (108) 98 Room Air 11/11/17 05:00 68 18 149/87 (107) 97 Room Air 11/11/17 04:00 98.6 62 17 143/82 (102) 97 Room Air 98.6 11/11/17 04:00 Room Air 11/11/17 03:00 66 18 150/91 (110) 97 Room Air 11/11/17 02:00 66 20 150/82 (104) 96 Room Air 11/11/17 01:00 68 18 147/88 (107) 99 Room Air 11/11/17 00:00 98.6 66 17 121/74 (90) 97 Room Air 98.6 11/11/17 00:00 Room Air 11/10/17 23:30 66 18 115/67 (83) 96 Room Air 11/10/17 23:00 68 18 126/84 (98) 98 Room Air 11/10/17 22:30 66 20 131/77 (95) 97 Room Air 11/10/17 22:00 68 17 134/81 (98) 98 Room Air 11/10/17 21:30 68 19 139/84 (102) 97 Room Air 11/10/17 21:00 68 19 151/97 (115) 97 Room Air 11/10/17 20:30 72 19 164/96 (118) 97 Room Air 11/10/17 20:00 97.3 70 19 175/93 (120) 99 Room Air 97.3 11/10/17 20:00 Room Air 11/10/17 19:30 68 21 156/99 (118) 99 Room Air 11/10/17 19:00 68 21 169/98 (121) 99 Room Air 11/10/17 18:30 73 24 179/100 (126) 98 Room Air 11/10/17 18:15 66 20 154/92 (112) 99 Room Air 11/10/17 18:00 72 22 171/88 (115) 97 Room Air 11/10/17 17:45 72 20 164/103 (123) 99 Room Air 11/10/17 17:30 70 18 156/102 (120) 99 Room Air 11/10/17 17:15 66 23 157/97 (117) 99 Room Air 11/10/17 17:00 70 21 164/91 (115) 100 Room Air 11/10/17 16:45 68 20 161/102 (121) 99 Room Air 11/10/17 16:30 66 23 164/103 (123) 100 Room Air 11/10/17 16:15 Room Air 11/10/17 16:15 97.3 64 18 164/104 (124) 100 Room Air 97.3 11/10/17 15:45 66 16 99 11/10/17 15:30 72 16 99 11/10/17 15:17 76 16 99 11/10/17 15:11 72 167/106 11/10/17 15:07 77 16 99 11/10/17 14:47 73 16 99 11/10/17 14:32 76 16 98 11/10/17 14:17 78 16 100 11/10/17 14:09 98.6 77 17 174/99 (124) 99 Room Air 98.6 Laboratory Laboratory Laboratory Tests Test 11/11/17 09:20 Urine Opiates Screen Neg (NEG) Urine Methadone Screen Neg (NEG) Urine Barbiturates Neg (NEG) Urine Phencyclidine Screen Neg (NEG) Urine Amphetamine/Methamphetamine Neg (NEG) Urine Benzodiazepines Screen Neg (NEG) Urine Cocaine Screen Neg (NEG) Urine Cannabinoids Screen Neg (NEG) Urine Ethyl Alcohol Neg (NEG) Medication Medications Current Medications Fenofibrate (Lofibra) 134 mg DAILY PO Last administered on 11/11/17at 09:25; Start 11/11/17 at 09:00 Sodium Chloride 1,000 ml @ 75 mls/hr [id number] IV Last administered on at 18:29; Start 11/10/17 at 19:00 Comment Review of Relevant I have reviewed the following items justo (where applicable) has been applied. LEN STRONG MD Nov 11, 2017 16:13
[2017-11-11 16:59] LABS: BASO % 1 % (0-3); EOS # 0.1 x10^3/uL (0.0-0.7); EOS % 2 % (0-3); HEMATOCRIT 40.5 % (39.0-53.0); HEMOGLOBIN 13.5 g/dL (13.0-17.5); LYMPH # 1.4 x10^3/uL (1.0-4.8); LYMPH % 32 % (24-48); MEAN CORPUSCULAR HEMOGLOBIN 27 pg (25-35); MEAN CORPUSCULAR HGB CONC 33 g/dL (31-37); MEAN CORPUSCULAR VOLUME 82 fL (79-100); MONO # 0.4 x10^3/uL (0.0-1.1); MONO % 10 % (0-9); NEUT # 2.5 x10^3uL (1.8-7.7); NEUT % 56 % (31-73); PLATELET COUNT 213 x10^3/uL (140-400); RED BLOOD COUNT 4.94 x10^6/uL (4.30-5.70); RED CELL DISTRIBUTION WIDTH 14.7 % (11.5-14.5); WHITE BLOOD COUNT 4.4 x10^3/uL (4.0-11.0)
[2017-11-11 17:24] LABS: CALCIUM 8.7 mg/dL (8.5-10.1); GFR 90.7; POTASSIUM 4.2 mmol/L (3.5-5.1)
[2017-11-11 17:26] LABS: CHOLESTEROL/HDL RATIO 3.7
--- NOTE | 2017-11-11 17:50 | RAD ---
MRI of the brain without contrast 11/11/2017 Clinical History: CVA syndrome. 24 hours post TPA treatment. Right-sided numbness. Speech difficulty. Technique: Unenhanced T1-weighted sagittal and axial, T2-weighted axial and coronal and FLAIR, gradient echo and diffusion-weighted axial images of the brain were obtained. Findings: Comparison is made to patient's CT scan of the head dated 11/10/2017. There is generalized parenchymal atrophy. Patchy and a central small scattered areas of increased signal intensity are seen within the periventricular and subcortical white matter of both cerebral hemispheres on the FLAIR and T2-weighted images consistent with areas of mild small vessel ischemic disease. Small old areas of infarction are seen involving both cerebellar hemispheres. These measure 2 mm to 6 mm in size. No acute parenchymal abnormality is seen. No extra-axial fluid collection is seen. There is no MRI evidence of acute ischemia/infarction. Mild mucosal thickening is seen scattered throughout the paranasal sinuses. There small bilateral mastoid effusions. Normal flow voids are seen within the major vascular structures surrounding the brain parenchyma. Impression: No acute parenchymal abnormality is seen. Electronically signed by: Brad England MD (11/11/2017 5:46 PM) [email or web address]
[2017-11-11] MEDS: ASPIRIN 325 MG TABLET PO SCH (18:30)
[2017-11-11] MEDS: IV NORMAL SALINE 1000ML BAG 1,000 ML IV SCH ×2 (21:53→21:54)
[2017-11-12 03:09] VITALS: BP 135/88
[2017-11-12 05:15] LABS: CHOLESTEROL/HDL RATIO 3.7
[2017-11-12 07:00] VITALS: BP 146/91
[2017-11-12] MEDS: FENOFIBRATE,MICRONIZED 134 MG CAPSULE PO SCH (08:54)
[2017-11-12] MEDS: ASPIRIN 325 MG TABLET PO SCH (08:55)
[2017-11-12 11:00] VITALS: BP 142/91
[2017-11-12] MEDS: IV NORMAL SALINE 1000ML BAG 1,000 ML IV SCH (11:28)
--- NOTE | 2017-11-12 12:59 | PDOC ---
PROGRESS NOTES Chief Complaint Chief Complaint Medical Problems: -Acute CVA, TPA administered neurology thinks this may be Garcia's palsy, vs viral syndrome - generalized parenchymal atrophy by mri head. Patchy and a central small scattered areas of increased signal intensity are seen within the periventricular and subcortical white matter of both cerebral hemispheres on the FLAIR and T2-weighted images consistent with areas of mild small vessel ischemic disease. Small old areas of infarction are seen involving both cerebellar hemispheres. These measure 2 mm to 6 mm in size. -htn -remote tobacco abuse plan lyme serology ID consult History of Present Illness History of Present Illness -Pt. was visited & examined in ICU -Pt. displayed motor hypokinesis of various muscular groups -Pt.demonstrated normal levels of cognition -Pts. family members were in the room with him -KAUSHIK Pt. his likely, but timely prognostic improvement -KAUSHIK RN patients post-ischemic stroke status & out plan of action Vitals Vitals Vital Signs Date Time Temp Pulse Resp B/P (MAP) Pulse Ox O2 Delivery O2 Flow Rate FiO2 11/12/17 11:00 97.9 68 20 142/91 (108) 93 Room Air 97.9 Physical Exam General: Alert, Oriented X3, Cooperative, No acute distress Heart: Regular rate, Normal S1, Normal S2, No murmurs Lungs: Clear, Other Abdomen: Normal bowel sounds, Soft, No tenderness Extremities: No clubbing, No cyanosis, No edema, No tenderness/swelling Skin: No rashes, No breakdown, No significant lesion Labs LABS MRI of the brain without contrast 11/11/2017 Clinical History: CVA syndrome. 24 hours post TPA treatment. Right-sided numbness. Speech difficulty. Technique: Unenhanced T1-weighted sagittal and axial, T2-weighted axial and coronal and FLAIR, gradient echo and diffusion-weighted axial images of the brain were obtained. Findings: Comparison is made to patient's CT scan of the head dated 11/10/2017. There is generalized parenchymal atrophy. Patchy and a central small scattered areas of increased signal intensity are seen within the periventricular and subcortical white matter of both cerebral hemispheres on the FLAIR and T2-weighted images consistent with areas of mild small vessel ischemic disease. Small old areas of infarction are seen involving both cerebellar hemispheres. These measure 2 mm to 6 mm in size. No acute parenchymal abnormality is seen. No extra-axial fluid collection is seen. There is no MRI evidence of acute ischemia/infarction. Mild mucosal thickening is seen scattered throughout the paranasal sinuses. There small bilateral mastoid effusions. Normal flow voids are seen within the major vascular structures surrounding the brain parenchyma. Impression: No acute parenchymal abnormality is seen. Electronically signed by: Brad England MD (11/11/2017 5:46 PM) [id number] Laboratory Tests Test 11/11/17 15:45 11/12/17 03:30 White Blood Count 4.4 x10^3/uL (4.0-11.0) Red Blood Count 4.94 x10^6/uL (4.30-5.70) Hemoglobin 13.5 g/dL (13.0-17.5) Hematocrit 40.5 % (39.0-53.0) Mean Corpuscular Volume 82 fL (79-100) Mean Corpuscular Hemoglobin 27 pg (25-35) Mean Corpuscular Hemoglobin Concent 33 g/dL (31-37) Red Cell Distribution Width 14.7 % (11.5-14.5) Platelet Count 213 x10^3/uL (140-400) Neutrophils (%) (Auto) 56 % (31-73) Lymphocytes (%) (Auto) 32 % (24-48) Monocytes (%) (Auto) 10 % (0-9) Eosinophils (%) (Auto) 2 % (0-3) Basophils (%) (Auto) 1 % (0-3) Neutrophils # (Auto) 2.5 x10^3uL (1.8-7.7) Lymphocytes # (Auto) 1.4 x10^3/uL (1.0-4.8) Monocytes # (Auto) 0.4 x10^3/uL (0.0-1.1) Eosinophils # (Auto) 0.1 x10^3/uL (0.0-0.7) Basophils # (Auto) 0.0 x10^3/uL (0.0-0.2) Sodium Level 138 mmol/L (136-145) Potassium Level 4.2 mmol/L (3.5-5.1) Chloride Level 106 mmol/L (98-107) Carbon Dioxide Level 28 mmol/L (21-32) Anion Gap 4 (6-14) Blood Urea Nitrogen 13 mg/dL (8-26) Creatinine 1.0 mg/dL (0.7-1.3) Estimated GFR (Cockcroft-Gault) 90.7 Glucose Level 103 mg/dL (70-99) Calcium Level 8.7 mg/dL (8.5-10.1) Triglycerides Level 80 mg/dL (0-150) 76 mg/dL (0-150) Cholesterol Level 161 mg/dL (0-200) 149 mg/dL (0-200) LDL Cholesterol, Calculated 101 mg/dL (0-100) 94 mg/dL (0-100) VLDL Cholesterol, Calculated 16 mg/dL (0-40) 15 mg/dL (0-40) Non-HDL Cholesterol Calculated 117 mg/dL (0-129) 109 mg/dL (0-129) HDL Cholesterol 44 mg/dL (40-60) 40 mg/dL (40-60) Cholesterol/HDL Ratio 3.7 3.7 Assessment and Plan Assessmemt and Plan Problems Medical Problems: (1) Acute ischemic stroke Status: Acute Comment Review of Relevant I have reviewed the following items justo (where applicable) has been applied. Labs Laboratory Tests Test 11/10/17 14:00 11/10/17 14:18 11/10/17 14:20 11/11/17 09:20 Thyroid Stimulating Hormone (TSH) 1.002 uIU/mL (0.358-3.74) Glucose (Fingerstick) 116 mg/dL (70-99) White Blood Count 5.1 x10^3/uL (4.0-11.0) Red Blood Count 4.89 x10^6/uL (4.30-5.70) Hemoglobin 13.3 g/dL (13.0-17.5) Hematocrit 40.3 % (39.0-53.0) Mean Corpuscular Volume 82 fL (79-100) Mean Corpuscular Hemoglobin 27 pg (25-35) Mean Corpuscular Hemoglobin Concent 33 g/dL (31-37) Red Cell Distribution Width 14.6 % (11.5-14.5) Platelet Count 208 x10^3/uL (140-400) Prothrombin Time 13.5 SEC (11.7-14.0) Prothromb Time International Ratio 1.1 (0.8-1.1) Activated Partial Thromboplast Time 28 SEC (24-38) Sodium Level 138 mmol/L (136-145) Potassium Level 3.7 mmol/L (3.5-5.1) Chloride Level 105 mmol/L (98-107) Carbon Dioxide Level 29 mmol/L (21-32) Anion Gap 4 (6-14) Blood Urea Nitrogen 21 mg/dL (8-26) Creatinine 1.2 mg/dL (0.7-1.3) Estimated GFR (Cockcroft-Gault) 60.8 BUN/Creatinine Ratio 18 (6-20) Glucose Level 130 mg/dL (70-99) Calcium Level 8.9 mg/dL (8.5-10.1) Total Bilirubin 0.4 mg/dL (0.2-1.0) Aspartate Amino Transf (AST/SGOT) 16 U/L (15-37) Alanine Aminotransferase (ALT/SGPT) 26 U/L (16-63) Alkaline Phosphatase 43 U/L (46-116) Troponin I Quantitative 0.022 ng/mL (0.000-0.055) Total Protein 7.2 g/dL (6.4-8.2) Albumin 3.9 g/dL (3.4-5.0) Albumin/Globulin Ratio 1.2 (1.0-1.7) Urine Opiates Screen Neg (NEG) Urine Methadone Screen Neg (NEG) Urine Barbiturates Neg (NEG) Urine Phencyclidine Screen Neg (NEG) Urine Amphetamine/Methamphetamine Neg (NEG) Urine Benzodiazepines Screen Neg (NEG) Urine Cocaine Screen Neg (NEG) Urine Cannabinoids Screen Neg (NEG) Urine Ethyl Alcohol Neg (NEG) Test 11/11/17 15:45 11/12/17 03:30 White Blood Count 4.4 x10^3/uL (4.0-11.0) Red Blood Count 4.94 x10^6/uL (4.30-5.70) Hemoglobin 13.5 g/dL (13.0-17.5) Hematocrit 40.5 % (39.0-53.0) Mean Corpuscular Volume 82 fL (79-100) Mean Corpuscular Hemoglobin 27 pg (25-35) Mean Corpuscular Hemoglobin Concent 33 g/dL (31-37) Red Cell Distribution Width 14.7 % (11.5-14.5) Platelet Count 213 x10^3/uL (140-400) Neutrophils (%) (Auto) 56 % (31-73) Lymphocytes (%) (Auto) 32 % (24-48) Monocytes (%) (Auto) 10 % (0-9) Eosinophils (%) (Auto) 2 % (0-3) Basophils (%) (Auto) 1 % (0-3) Neutrophils # (Auto) 2.5 x10^3uL (1.8-7.7) Lymphocytes # (Auto) 1.4 x10^3/uL (1.0-4.8) Monocytes # (Auto) 0.4 x10^3/uL (0.0-1.1) Eosinophils # (Auto) 0.1 x10^3/uL (0.0-0.7) Basophils # (Auto) 0.0 x10^3/uL (0.0-0.2) Sodium Level 138 mmol/L (136-145) Potassium Level 4.2 mmol/L (3.5-5.1) Chloride Level 106 mmol/L (98-107) Carbon Dioxide Level 28 mmol/L (21-32) Anion Gap 4 (6-14) Blood Urea Nitrogen 13 mg/dL (8-26) Creatinine 1.0 mg/dL (0.7-1.3) Estimated GFR (Cockcroft-Gault) 90.7 Glucose Level 103 mg/dL (70-99) Calcium Level 8.7 mg/dL (8.5-10.1) Triglycerides Level 80 mg/dL (0-150) 76 mg/dL (0-150) Cholesterol Level 161 mg/dL (0-200) 149 mg/dL (0-200) LDL Cholesterol, Calculated 101 mg/dL (0-100) 94 mg/dL (0-100) VLDL Cholesterol, Calculated 16 mg/dL (0-40) 15 mg/dL (0-40) Non-HDL Cholesterol Calculated 117 mg/dL (0-129) 109 mg/dL (0-129) HDL Cholesterol 44 mg/dL (40-60) 40 mg/dL (40-60) Cholesterol/HDL Ratio 3.7 3.7 Laboratory Tests Test 11/11/17 15:45 11/12/17 03:30 White Blood Count 4.4 x10^3/uL (4.0-11.0) Red Blood Count 4.94 x10^6/uL (4.30-5.70) Hemoglobin 13.5 g/dL (13.0-17.5) Hematocrit 40.5 % (39.0-53.0) Mean Corpuscular Volume 82 fL (79-100) Mean Corpuscular Hemoglobin 27 pg (25-35) Mean Corpuscular Hemoglobin Concent 33 g/dL (31-37) Red Cell Distribution Width 14.7 % (11.5-14.5) Platelet Count 213 x10^3/uL (140-400) Neutrophils (%) (Auto) 56 % (31-73) Lymphocytes (%) (Auto) 32 % (24-48) Monocytes (%) (Auto) 10 % (0-9) Eosinophils (%) (Auto) 2 % (0-3) Basophils (%) (Auto) 1 % (0-3) Neutrophils # (Auto) 2.5 x10^3uL (1.8-7.7) Lymphocytes # (Auto) 1.4 x10^3/uL (1.0-4.8) Monocytes # (Auto) 0.4 x10^3/uL (0.0-1.1) Eosinophils # (Auto) 0.1 x10^3/uL (0.0-0.7) Basophils # (Auto) 0.0 x10^3/uL (0.0-0.2) Sodium Level 138 mmol/L (136-145) Potassium Level 4.2 mmol/L (3.5-5.1) Chloride Level 106 mmol/L (98-107) Carbon Dioxide Level 28 mmol/L (21-32) Anion Gap 4 (6-14) Blood Urea Nitrogen 13 mg/dL (8-26) Creatinine 1.0 mg/dL (0.7-1.3) Estimated GFR (Cockcroft-Gault) 90.7 Glucose Level 103 mg/dL (70-99) Calcium Level 8.7 mg/dL (8.5-10.1) Triglycerides Level 80 mg/dL (0-150) 76 mg/dL (0-150) Cholesterol Level 161 mg/dL (0-200) 149 mg/dL (0-200) LDL Cholesterol, Calculated 101 mg/dL (0-100) 94 mg/dL (0-100) VLDL Cholesterol, Calculated 16 mg/dL (0-40) 15 mg/dL (0-40) Non-HDL Cholesterol Calculated 117 mg/dL (0-129) 109 mg/dL (0-129) HDL Cholesterol 44 mg/dL (40-60) 40 mg/dL (40-60) Cholesterol/HDL Ratio 3.7 3.7 Medications Current Medications Alteplase, Recombinant 0 ml @ 0 mls/hr 1X ONCE IV ; Start 11/10/17 at 14:45; Stop 11/10/17 at 14:46; Status Cancel Alteplase, Recombinant 0 ml @ 0 mls/hr Q1H IV ; Start 11/10/17 at 14:30; Stop at 14:31; Status Cancel Sodium Chloride 50 ml @ 0 mls/hr 1X ONCE IV Last administered on 11/10/17at 15: 45; Start 11/10/17 at 14:30; Stop 11/10/17 at 14:33; Status DC Labetalol HCl (Normodyne) 10 mg PRN Q10MIN PRN IVP HYPERTENSION, SEE COMMENTS Last administered on 11/11/17at 11:38; Start 11/10/17 at 14:30 Nicardipine HCl 50 mg/Sodium Chloride 270 ml @ 27 mls/hr CONT PRN PRN IV HYPERTENSION, SEE COMMENTS; Start 11/10/17 at 14:30 Alteplase, Recombinant 0 ml @ 0 mls/hr Q1H IV Last administered on 11/10/17at 14 :57; Start 11/10/17 at 14:45; Stop 11/10/17 at 14:46; Status DC Alteplase, Recombinant 0 ml @ 0 mls/hr 1X ONCE IV Last administered on at 14:56; Start 11/10/17 at 14:45; Stop 11/10/17 at 14:46; Status DC Fenofibrate (Lofibra) 134 mg DAILY PO Last administered on 11/12/17at 08:54; Start 11/11/17 at 09:00 Sodium Chloride 1,000 ml @ 75 mls/hr [id number] IV Last administered on at 11:28; Start 11/10/17 at 19:00 Aspirin (Ellen Aspirin) 325 mg [id number] PO Last administered on 11/12/17at 08: 55; Start 11/11/17 at 17:00 Atorvastatin Calcium (Lipitor) 10 mg QHS PO ; Start 11/12/17 at 21:00 Valacyclovir HCl (Valtrex) 500 mg BID PO ; Start 11/12/17 at 14:00 Prednisone (Prednisone) 20 mg DAILY PO ; Start 11/12/17 at 14:00 Active Scripts Active Reported Fenofibrate 160 Mg Tablet 1 Tab PO DAILY Lisinopril 40 Mg Tablet 1 Tab PO DAILY Vitals/I & O Vital Sign - Last 24 Hours 11/11/17 11/11/17 11/11/17 11/11/17 13:00 14:00 15:00 16:00 Temp 97.7 97.7 Pulse 68 66 66 61 Resp 18 18 18 20 B/P (MAP) 145/97 (113) 141/88 (105) 135/89 (104) 146/85 (105) Pulse Ox 96 98 100 99 O2 Delivery Room Air Room Air Room Air Room Air 11/11/17 11/11/17 11/11/17 11/11/17 16:00 19:49 20:00 23:37 Temp 97.9 98.1 97.9 98.1 Pulse 74 74 Resp 18 16 B/P (MAP) 144/86 (105) 140/87 (104) Pulse Ox 98 98 O2 Delivery Room Air Room Air Room Air Room Air 11/12/17 11/12/17 11/12/17 11/12/17 03:09 07:00 08:00 11:00 Temp 98.1 97.9 97.9 98.1 97.9 97.9 Pulse 64 66 68 Resp 16 20 20 B/P (MAP) 135/88 (104) 146/91 (109) 142/91 (108) Pulse Ox 98 99 93 O2 Delivery Room Air Room Air Room Air Room Air Intake and Output 11/11/17 11/11/17 11/12/17 15:00 23:00 07:00 Intake Total 0 ml 240 ml 950 ml Output Total 475 ml 0 ml Balance -475 ml 240 ml 950 ml NIKKIE FLORES MD Nov 12, 2017 12:59
[2017-11-12 13:19] LABS: BASO % 1 % (0-3); EOS # 0.2 x10^3/uL (0.0-0.7); EOS % 3 % (0-3); HEMATOCRIT 38.5 % (39.0-53.0); HEMOGLOBIN 12.8 g/dL (13.0-17.5); LYMPH # 1.4 x10^3/uL (1.0-4.8); LYMPH % 29 % (24-48); MEAN CORPUSCULAR HEMOGLOBIN 27 pg (25-35); MEAN CORPUSCULAR HGB CONC 33 g/dL (31-37); MEAN CORPUSCULAR VOLUME 82 fL (79-100); MONO # 0.4 x10^3/uL (0.0-1.1); MONO % 9 % (0-9); NEUT # 2.8 x10^3uL (1.8-7.7); NEUT % 57 % (31-73); PLATELET COUNT 203 x10^3/uL (140-400); RED BLOOD COUNT 4.69 x10^6/uL (4.30-5.70); RED CELL DISTRIBUTION WIDTH 14.6 % (11.5-14.5); WHITE BLOOD COUNT 4.8 x10^3/uL (4.0-11.0)
[2017-11-12 13:28] LABS: ALBUMIN 3.3 g/dL (3.4-5.0); CALCIUM 8.4 mg/dL (8.5-10.1); GFR 90.7; POTASSIUM 3.8 mmol/L (3.5-5.1); TOTAL BILIRUBIN 0.4 mg/dL (0.2-1.0); TOTAL PROTEIN 6.7 g/dL (6.4-8.2)
[2017-11-12 15:00] VITALS: BP 152/90
[2017-11-12] MEDS: predniSONE 20 MG TABLET PO SCH (17:12)
[2017-11-12] MEDS: valACYclovir 500 MG TABLET. PO SCH ×2 (17:12→20:58)
--- NOTE | 2017-11-12 17:19 | PDOC ---
PROGRESS NOTES Assessment Assessment Acute CVA syndrome s/p TPA on 11/10/17. Right side facial palsy. Right UE weakness. Aphasia, no long present. 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 HTN DM. Over weight. RECOMMENDATIONS/PLAN: TPA administrated on 11/10 after all criteria met. ASA 325 mg 24-hours after TPA. Valacyclovir 500 mg bid x 5 days. Prednisone 20 mg daily x 5 days. Treat medical diseases. BP control. OT/PT. Discussed with his mother at bedside on 11/12/17. Carotid A US + Doppler: No hemodynamic stenosis. Echo + bubble study: EF: 45% Brain MRI w/o contrast on 11/11 reported no acute CVA this time. HISTORY OF THE PRESENT ILLNESS: This is a 67-year-old AA male patient with Hx of HTN who was brought to the [facility] ER via EMS with acute strokelike symptoms. The patient stated he just finished playing golf and got into his car. While was driving, he suddenly feeling sick with mild headache. He felt his right hand went completely limp. Per EMS, he had right side facial droop and slurred speech. His symptoms started about 1:20 PM on 11/10. He denied vision changes. He denied any recent head injuries or surgeries. Speech normal. Right UE weakness resolved since 11/10. PAST MEDICAL HISTORY: HTN. Over weight. PAST SURGERY HISTORY: No major surgery recently. ALLERGY: NKDA MEDICATIONS: Refer to [facility] FAMILY HISTORY: HTN, HLD. SOCIAL HISTORY: Lives at home. Denies current smoking and illicit drug use. He drinks 1 beer a month. He was a former smoker and drinker but quit in . REVIEW OF SYSTEMS: Constitutional: No malnutrition, weight loss, cachexia. Head: No traumatic brain or head injury. Skin: No edema, or rash. Ear: No infection. Eyes: No vision loss or color blindness. Nose: No bleeding or purulent discharges. Hearing: No hearing decrease. Neck: No injury. Cardiac: HTN. Pulmonary: No pneumonia, COPD. GI: No GI ulcer, GI bleeding. Urinary/genital: No dysuria, incontinence, urinary retention. Endocrinologic: Diabetes Mellitus? Skeletomuscular: No muscular atrophy, deformity. Neurological: see HP. Psychiatric: Denies drug use/abuse. Otherwise, not [id number] review of systems. PHYSICAL EXAMINATION: General appearance is in acute distress. HEENT: Normocephalic and nontraumatic. Eyes, nose, ears, and throat are unremarkable. Neck is supple. No lymphadenopathy. No crepitus. Cardiovascular: S1, S2, regular rate and rhythm. Pulmonary: Clear to auscultation bilaterally. Abdomen: Bowel sounds are positive. Abdomen is soft, nontender, and nondistended. Extremities: No rash, lesions, or edema. No restriction of range of motion NEUROLOGICAL EXAMINATION: Awake. Oriented to time, place and person. PERRL. EOMI. CN: right side VII palsy. Muscle tone: within normal. Muscle strength: 5 DTR: 2 Plantar reflex: Flexor response bilaterally Gait: Normal. Sensory exam: no abnormal findings. No cerebellar signs elicited. F-T-N test fine. Objective Objective Vital Signs Date Time Temp Pulse Resp B/P (MAP) Pulse Ox O2 Delivery O2 Flow Rate FiO2 11/12/17 15:00 98.2 66 24 152/90 (110) 96 Room Air 98.2 Intake and Output 11/12/17 07:00 Intake Total 1190 ml Output Total 475 ml Balance 715 ml Intake Oral 1190 ml Output Urine Total 475 ml # Voids 3 # Bowel Movements 1 Vitals Signs Vitals VS - Last 72 Hours, by Label Date Time Temp Pulse Resp B/P (MAP) Pulse Ox O2 Delivery O2 Flow Rate FiO2 11/12/17 15:00 98.2 66 24 152/90 (110) 96 Room Air 98.2 11/12/17 11:00 97.9 68 20 142/91 (108) 93 Room Air 97.9 11/12/17 08:00 Room Air 11/12/17 07:00 97.9 66 20 146/91 (109) 99 Room Air 97.9 11/12/17 03:09 98.1 64 16 135/88 (104) 98 Room Air 98.1 11/11/17 23:37 98.1 74 16 140/87 (104) 98 Room Air 98.1 11/11/17 20:00 Room Air 11/11/17 19:49 97.9 74 18 144/86 (105) 98 Room Air 97.9 11/11/17 16:00 Room Air 11/11/17 16:00 97.7 61 20 146/85 (105) 99 Room Air 97.7 11/11/17 15:00 66 18 135/89 (104) 100 Room Air 11/11/17 14:00 66 18 141/88 (105) 98 Room Air 11/11/17 13:00 68 18 145/97 (113) 96 Room Air 11/11/17 12:00 62 18 129/84 (99) 98 Room Air 11/11/17 12:00 Room Air 11/11/17 11:38 67 180/107 11/11/17 11:00 67 18 168/103 (124) 97 Room Air 11/11/17 10:00 64 18 148/96 (113) 100 Room Air 11/11/17 09:00 62 18 155/92 (113) 99 Room Air 11/11/17 08:00 65 18 163/87 (112) 98 Room Air 11/11/17 08:00 Room Air 11/11/17 07:00 99.2 65 18 150/98 (115) 100 Room Air 99.2 Laboratory Laboratory Laboratory Tests Test 11/12/17 03:30 11/12/17 14:50 White Blood Count 4.8 x10^3/uL (4.0-11.0) Red Blood Count 4.69 x10^6/uL (4.30-5.70) Hemoglobin 12.8 g/dL (13.0-17.5) Hematocrit 38.5 % (39.0-53.0) Mean Corpuscular Volume 82 fL (79-100) Mean Corpuscular Hemoglobin 27 pg (25-35) Mean Corpuscular Hemoglobin Concent 33 g/dL (31-37) Red Cell Distribution Width 14.6 % (11.5-14.5) Platelet Count 203 x10^3/uL (140-400) Neutrophils (%) (Auto) 57 % (31-73) Lymphocytes (%) (Auto) 29 % (24-48) Monocytes (%) (Auto) 9 % (0-9) Eosinophils (%) (Auto) 3 % (0-3) Basophils (%) (Auto) 1 % (0-3) Neutrophils # (Auto) 2.8 x10^3uL (1.8-7.7) Lymphocytes # (Auto) 1.4 x10^3/uL (1.0-4.8) Monocytes # (Auto) 0.4 x10^3/uL (0.0-1.1) Eosinophils # (Auto) 0.2 x10^3/uL (0.0-0.7) Basophils # (Auto) 0.0 x10^3/uL (0.0-0.2) Sodium Level 139 mmol/L (136-145) Potassium Level 3.8 mmol/L (3.5-5.1) Chloride Level 107 mmol/L (98-107) Carbon Dioxide Level 25 mmol/L (21-32) Anion Gap 7 (6-14) Blood Urea Nitrogen 11 mg/dL (8-26) Creatinine 1.0 mg/dL (0.7-1.3) Estimated GFR (Cockcroft-Gault) 90.7 BUN/Creatinine Ratio 11 (6-20) Glucose Level 91 mg/dL (70-99) Calcium Level 8.4 mg/dL (8.5-10.1) Total Bilirubin 0.4 mg/dL (0.2-1.0) Aspartate Amino Transf (AST/SGOT) 15 U/L (15-37) Alanine Aminotransferase (ALT/SGPT) 26 U/L (16-63) Alkaline Phosphatase 43 U/L (46-116) Total Protein 6.7 g/dL (6.4-8.2) Albumin 3.3 g/dL (3.4-5.0) Albumin/Globulin Ratio 1.0 (1.0-1.7) Triglycerides Level 76 mg/dL (0-150) Cholesterol Level 149 mg/dL (0-200) LDL Cholesterol, Calculated 94 mg/dL (0-100) VLDL Cholesterol, Calculated 15 mg/dL (0-40) Non-HDL Cholesterol Calculated 109 mg/dL (0-129) HDL Cholesterol 40 mg/dL (40-60) Cholesterol/HDL Ratio 3.7 Erythrocyte Sedimentation Rate 6 (0-15) Medication Medications Current Medications Atorvastatin Calcium (Lipitor) 10 mg QHS PO ; Start 11/12/17 at 21:00 Prednisone (Prednisone) 20 mg DAILY PO Last administered on 11/12/17at 17:12; Start 11/12/17 at 14:00 Valacyclovir HCl (Valtrex) 500 mg BID PO Last administered on 11/12/17at 17:12; Start 11/12/17 at 14:00 Comment Review of Relevant I have reviewed the following items justo (where applicable) has been applied. LEN STRONG MD Nov 12, 2017 17:19
[2017-11-12 19:45] VITALS: BP 149/77
[2017-11-12] MEDS ORDERED: ATORVASTATIN CALCIUM 10 MG TABLET. PO SCH (21:00)
[2017-11-12 23:02] VITALS: BP 142/82
[2017-11-13] MEDS: IV NORMAL SALINE 1000ML BAG 1,000 ML IV SCH (00:27)
[2017-11-13 03:15] VITALS: BP 147/84
[2017-11-13 06:50] VITALS: BP 167/109
[2017-11-13] MEDS: ASPIRIN 325 MG TABLET PO SCH (08:54)
[2017-11-13] MEDS: FENOFIBRATE,MICRONIZED 134 MG CAPSULE PO SCH (08:54)
[2017-11-13] MEDS: predniSONE 20 MG TABLET PO SCH (08:54)
[2017-11-13] MEDS: valACYclovir 500 MG TABLET. PO SCH (08:54)
[2017-11-13 10:50] VITALS: BP 161/92
[2017-11-13] MEDS ORDERED: PRED20TA PO (11:12)
[2017-11-13] MEDS ORDERED: VALA500T PO (11:12)
[2017-11-13] MEDS ORDERED: ATOR10TA60 PO (11:12)
--- NOTE | 2017-11-13 12:28 | PDOC ---
PROGRESS NOTES Assessment Assessment Acute CVA syndrome s/p TPA on 11/10/17. Right side facial palsy. Right UE weakness, resolved on the same day. Aphasia, no long present. 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 HTN DM. Over weight. No structural evidence of acute stroke this time. RECOMMENDATIONS/PLAN: ASA 325 mg daily. Valacyclovir 500 mg bid x 5 days. Prednisone 20 mg daily x 5 days. Treat medical diseases. BP control. OT/PT. Discussed with his mother and at bedside on 11/13/17. Carotid A US + Doppler: No hemodynamic stenosis. Echo + bubble study: EF: 45% Brain MRI w/o contrast on 11/11 reported no acute CVA this time. HISTORY OF THE PRESENT ILLNESS: This is a 67-year-old AA male patient with Hx of HTN who was brought to the [facility] ER via EMS with acute strokelike symptoms. The patient stated he just finished playing golf and got into his car. While was driving, he suddenly feeling sick with mild headache. He felt his right hand went completely limp. Per EMS, he had right side facial droop and slurred speech. His symptoms started about 1:20 PM on 11/10. He denied vision changes. He denied any recent head injuries or surgeries. Speech normal. Right UE weakness resolved since 11/10. PAST MEDICAL HISTORY: HTN. Over weight. PAST SURGERY HISTORY: No major surgery recently. ALLERGY: NKDA MEDICATIONS: Refer to [facility]ILY HISTORY: HTN, HLD. SOCIAL HISTORY: Lives at home. Denies current smoking and illicit drug use. He drinks 1 beer a month. He was a former smoker and drinker but quit in . REVIEW OF SYSTEMS: Constitutional: No malnutrition, weight loss, cachexia. Head: No traumatic brain or head injury. Skin: No edema, or rash. Ear: No infection. Eyes: No vision loss or color blindness. Nose: No bleeding or purulent discharges. Hearing: No hearing decrease. Neck: No injury. Cardiac: HTN. Pulmonary: No pneumonia, COPD. GI: No GI ulcer, GI bleeding. Urinary/genital: No dysuria, incontinence, urinary retention. Endocrinologic: Diabetes Mellitus? Skeletomuscular: No muscular atrophy, deformity. Neurological: see HP. Psychiatric: Denies drug use/abuse. Otherwise, not [id number] review of systems. PHYSICAL EXAMINATION: General appearance is in acute distress. HEENT: Normocephalic and nontraumatic. Eyes, nose, ears, and throat are unremarkable. Neck is supple. No lymphadenopathy. No crepitus. Cardiovascular: S1, S2, regular rate and rhythm. Pulmonary: Clear to auscultation bilaterally. Abdomen: Bowel sounds are positive. Abdomen is soft, nontender, and nondistended. Extremities: No rash, lesions, or edema. No restriction of range of motion NEUROLOGICAL EXAMINATION: Awake. Oriented to time, place and person. PERRL. EOMI. CN: Mild right side facial drooping. Muscle tone: within normal. Muscle strength: 5 DTR: 2 Plantar reflex: Flexor response bilaterally Gait: Normal. Sensory exam: no abnormal findings. No cerebellar signs elicited. F-T-N test accurate. Objective Objective Vital Signs Date Time Temp Pulse Resp B/P (MAP) Pulse Ox O2 Delivery O2 Flow Rate FiO2 11/13/17 10:50 97.9 77 18 161/92 (115) 96 Room Air 97.9 Intake and Output 11/13/17 07:00 Intake Total 1960 ml Output Total 900 ml Balance 1060 ml Intake Oral 960 ml IV Total 1000 ml Output Urine Total 900 ml # Voids 3 Vitals Signs Vitals VS - Last 72 Hours, by Label Date Time Temp Pulse Resp B/P (MAP) Pulse Ox O2 Delivery O2 Flow Rate FiO2 11/13/17 10:50 97.9 77 18 161/92 (115) 96 Room Air 97.9 11/13/17 08:00 Room Air 11/13/17 06:50 97.9 81 20 167/109 (128) 98 Room Air 97.9 11/13/17 03:15 98.4 80 147/84 (105) 93 Room Air 98.4 11/12/17 23:02 98.3 80 20 142/82 (102) 97 Room Air 98.3 11/12/17 20:00 Room Air 11/12/17 19:45 98.4 75 20 149/77 (101) 97 Room Air 98.4 11/12/17 15:00 98.2 66 24 152/90 (110) 96 Room Air 98.2 11/12/17 11:00 97.9 68 20 142/91 (108) 93 Room Air 97.9 11/12/17 08:00 Room Air 11/12/17 07:00 97.9 66 20 146/91 (109) 99 Room Air 97.9 Laboratory Laboratory Laboratory Tests Test 11/12/17 14:50 Erythrocyte Sedimentation Rate 6 (0-15) Medication Medications Current Medications Atorvastatin Calcium (Lipitor) 10 mg QHS PO Last administered on 11/12/17at 20: 58; Start 11/12/17 at 21:00 Prednisone (Prednisone) 20 mg DAILY PO Last administered on 11/13/17at 08:54; Start 11/12/17 at 14:00 Valacyclovir HCl (Valtrex) 500 mg BID PO Last administered on 11/13/17at 08:54; Start 11/12/17 at 14:00 Comment Review of Relevant I have reviewed the following items justo (where applicable) has been applied. LEN STRONG MD Nov 13, 2017 12:28
--- NOTE | 2017-11-13 12:35 | PDOC3 ---
Discharge Summary Visit Information Date of Admission: Nov 10, 2017 Date of Discharge: Nov 13, 2017 Admitting Diagnosis Comment: Assessment Acute CVA syndrome s/p TPA on 11/10/17. Right side facial palsy. Right UE weakness, resolved on the same day. Aphasia, no long present. 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 HTN DM. Over weight. No structural evidence of acute stroke this time. RECOMMENDATIONS/PLAN: ASA 325 mg daily. Valacyclovir 500 mg bid x 5 days. Prednisone 20 mg daily x 5 days. Treat medical diseases. BP control. OT/PT. Discussed with his mother and at bedside on 11/13/17. Carotid A US + Doppler: No hemodynamic stenosis. Echo + bubble study: EF: 45% Brain MRI w/o contrast on 11/11 reported no acute CVA this time. Final Diagnosis Problems Medical Problems: (1) Acute ischemic stroke Status: Acute Brief Hospital Course Allergies Allergies Coded Allergies Type Severity Reaction Last Updated Verified No Known Drug Allergies 11/10/17 No Vital Signs Vital Signs Date Time Temp Pulse Resp B/P (MAP) Pulse Ox O2 Delivery O2 Flow Rate FiO2 11/13/17 10:50 97.9 77 18 161/92 (115) 96 Room Air 97.9 Lab Results Laboratory Tests Test 11/11/17 15:45 11/12/17 03:30 11/12/17 14:50 White Blood Count 4.4 x10^3/uL (4.0-11.0) 4.8 x10^3/uL (4.0-11.0) Red Blood Count 4.94 x10^6/uL (4.30-5.70) 4.69 x10^6/uL (4.30-5.70) Hemoglobin 13.5 g/dL (13.0-17.5) 12.8 g/dL (13.0-17.5) Hematocrit 40.5 % (39.0-53.0) 38.5 % (39.0-53.0) Mean Corpuscular Volume 82 fL (79-100) 82 fL (79-100) Mean Corpuscular Hemoglobin 27 pg (25-35) 27 pg (25-35) Mean Corpuscular Hemoglobin Concent 33 g/dL (31-37) 33 g/dL (31-37) Red Cell Distribution Width 14.7 % (11.5-14.5) 14.6 % (11.5-14.5) Platelet Count 213 x10^3/uL (140-400) 203 x10^3/uL (140-400) Neutrophils (%) (Auto) 56 % (31-73) 57 % (31-73) Lymphocytes (%) (Auto) 32 % (24-48) 29 % (24-48) Monocytes (%) (Auto) 10 % (0-9) 9 % (0-9) Eosinophils (%) (Auto) 2 % (0-3) 3 % (0-3) Basophils (%) (Auto) 1 % (0-3) 1 % (0-3) Neutrophils # (Auto) 2.5 x10^3uL (1.8-7.7) 2.8 x10^3uL (1.8-7.7) Lymphocytes # (Auto) 1.4 x10^3/uL (1.0-4.8) 1.4 x10^3/uL (1.0-4.8) Monocytes # (Auto) 0.4 x10^3/uL (0.0-1.1) 0.4 x10^3/uL (0.0-1.1) Eosinophils # (Auto) 0.1 x10^3/uL (0.0-0.7) 0.2 x10^3/uL (0.0-0.7) Basophils # (Auto) 0.0 x10^3/uL (0.0-0.2) 0.0 x10^3/uL (0.0-0.2) Sodium Level 138 mmol/L (136-145) 139 mmol/L (136-145) Potassium Level 4.2 mmol/L (3.5-5.1) 3.8 mmol/L (3.5-5.1) Chloride Level 106 mmol/L (98-107) 107 mmol/L (98-107) Carbon Dioxide Level 28 mmol/L (21-32) 25 mmol/L (21-32) Anion Gap 4 (6-14) 7 (6-14) Blood Urea Nitrogen 13 mg/dL (8-26) 11 mg/dL (8-26) Creatinine 1.0 mg/dL (0.7-1.3) 1.0 mg/dL (0.7-1.3) Estimated GFR (Cockcroft-Gault) 90.7 90.7 Glucose Level 103 mg/dL (70-99) 91 mg/dL (70-99) Calcium Level 8.7 mg/dL (8.5-10.1) 8.4 mg/dL (8.5-10.1) Triglycerides Level 80 mg/dL (0-150) 76 mg/dL (0-150) Cholesterol Level 161 mg/dL (0-200) 149 mg/dL (0-200) LDL Cholesterol, Calculated 101 mg/dL (0-100) 94 mg/dL (0-100) VLDL Cholesterol, Calculated 16 mg/dL (0-40) 15 mg/dL (0-40) Non-HDL Cholesterol Calculated 117 mg/dL (0-129) 109 mg/dL (0-129) HDL Cholesterol 44 mg/dL (40-60) 40 mg/dL (40-60) Cholesterol/HDL Ratio 3.7 3.7 BUN/Creatinine Ratio 11 (6-20) Total Bilirubin 0.4 mg/dL (0.2-1.0) Aspartate Amino Transf (AST/SGOT) 15 U/L (15-37) Alanine Aminotransferase (ALT/SGPT) 26 U/L (16-63) Alkaline Phosphatase 43 U/L (46-116) Total Protein 6.7 g/dL (6.4-8.2) Albumin 3.3 g/dL (3.4-5.0) Albumin/Globulin Ratio 1.0 (1.0-1.7) Lyme Disease IgG/IgM Antibodies <0.91 ISR (0.00-0.90) Erythrocyte Sedimentation Rate 6 (0-15) Laboratory Tests Test 11/12/17 14:50 Erythrocyte Sedimentation Rate 6 (0-15) Brief Hospital Course Mr. Ferreira is a 67 old -[place] male, admitted for acute CVA status post TPA on admission 11/10/17. He had some right-sided facial palsy hence neurology has started prednisone 20 mg for 5 days likely for presumed BElls. Was not taking any blood thinners at home, to go home with aspirin 325 daily and some statin which I provided scripts. MRI actually did not show any acute stroke. Ultrasound of bilateral carotids negative for stenosis. 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 Information Condition at Discharge: Improved, Stable Disposition/Orders: D/C to Home Scheduled Atorvastatin Calcium (Atorvastatin Calcium) 10 Mg Tablet, 10 MG PO QHS for 30 Days, #30 Prescribed by: BRAXTON SHAY on 11/13/17 1112 Fenofibrate (Fenofibrate) 160 Mg Tablet, 1 TAB PO DAILY, #30 Ref 5 (Reported) Entered as Reported by: FLYNN FRANCE on 11/10/171654 Last Taken: Unknown Dose on 11/08/17 Last Action: Converted on 11/10/171735 by NIKKIE FLORES MD Lisinopril (Lisinopril) 40 Mg Tablet, 1 TAB PO DAILY, #30 Ref 5 (Reported) Entered as Reported by: FLYNN FRANCE on 11/10/171654 Last Taken: Unknown Dose on 11/08/17 Last Action: HELD on 11/10/171735 by NIKKIE FLORES MD Prednisone (Prednisone) 20 Mg Tablet, 20 MG PO DAILY for 7 Days, #7 Prescribed by: BRAXTON SHAY on 11/13/17 1112 Valacyclovir Hcl (Valacyclovir) 500 Mg Tablet, 500 MG PO BID for 14 Days, #28 Prescribed by: BRAXTON SHAY on 11/13/172 BRAXTON SHAY MD Nov 13, 2017 12:35
== END 2017-11-13 14:33 | disposition home or self-care (01) | DRG 63 ==
LOC: ER 14:09 → 1 WEST ICU 14:55 → 6 SOUTH 11-11 16:42
PROVIDERS: ADMIT Family Medicine; ATTEND Family Medicine
DX: I63.8 Other cerebral infarction (principal); G51.0 Bell's palsy; R47.01 Aphasia; Z82.49 Family history of ischemic heart disease and other diseases of the circulatory system; I10 Essential (primary) hypertension; Z79.82 Long term (current) use of aspirin; E66.3 Overweight; Z68.30 Body mass index [BMI] 30.0-30.9, adult; Z87.891 Personal history of nicotine dependence; E11.9 Type 2 diabetes mellitus without complications; Z79.899 Other long term (current) drug therapy
CPT/HCPCS: 99291; C8929; 36415; 70450; 70551; 71045; 80048; 80053; 80061; 80307; 82962; 84443; 84484; 85025; 85027; 85610; 85651; 85730; 86617; 86618; 87641; 93005; 93880; 96365; 96375; J2997; J3490; J7030; J7512; 92526; 92610; G0479